=== PATIENT | male | born 1990 | race African-American/Black ===

== ENCOUNTER 2017-01-27 22:51 | Observation (INO) ==
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
[2017-01-27 23:48] LABS: Basophils # 0.1 K/mcL (0.0-0.2); Basophils % 0.4 %; Eosinophils # 0.3 K/mcL (0.0-0.6); Eosinophils % 2.2 %; Hemoglobin 15.7 g/dL (12.9-16.9); Immature Granulocytes % 0.6 % (0-4); Lymphocytes # 3.2 K/mcL (0.6-4.6); Lymphocytes % 25.6 %; Mean Corpuscular HGB Conc 34.9 g/dL (31.6-35.5); Mean Corpuscular Hemoglobin 25.7 pg (28.0-33.3); Mean Corpuscular Volume 73.8 fL (83.0-100.0); Mean Platelet Volume 8.4 fL (9.4-12.4); Monocytes % 7.6 %; Neutrophils # 7.9 K/mcL (1.6-8.9); Platelet Count 342 K/mcL (140-400); Red Cell Distribution Width 12.7 % (11.5-14.5); Segmented Neutrophils % 63.6 %
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
[2017-01-28 00:05] LABS: BUN/Creatinine Ratio 8 (6-26); Blood Urea Nitrogen 12 mg/dL (8-26); Calcium 9.2 mg/dL (8.6-10.8); Carbon Dioxide 22 mEq/L (19-29); Chloride 103 mEq/L (98-109); Glucose 332 mg/dL (70-99); Osmolality,Calculated 293 (280-300); Potassium 4.3 mEq/L (3.5-4.5); Sodium 135 mEq/L (136-145); eGFR For African Americans > 60 (> 60); eGFR For Non-African Americans 53 (> 60)
[2017-01-28 00:15] LABS: Bilirubin,Urine Negative (Negative); Blood,Urine Negative (Negative); Clarity,Urine Clear (Clear); Color,Urine Yellow (Yellow); Glucose,Urine (UA) >=1000 mg/dL (Normal); Ketones,Urine Negative (Negative); Leukocyte Esterase,Urine Negative (Negative); Nitrite,Urine Negative (Negative); PH,Urine 7.5 pH Units (5.0-8.0); Protein,Urine Negative (Neg-Trace); Urobilinogen,Urine Normal (Normal)
[2017-01-28 00:22] LABS: Amphetamine Screen,Urine Negative ng/mL (Cutoff=1000); Barbiturate Screen,Urine Negative ng/mL (Cutoff=200); Benzodiazepines Screen,Urine Negative ng/mL (Cutoff=200); Cannabinoid Screen,Urine Positive ng/mL (Cutoff = 50); Cocaine Screen,Urine Positive ng/mL (Cutoff= 300); Opiate Screen,Urine Negative ng/mL (Cutoff=300); Phencyclidine Screen,Urine Negative ng/mL (Cutoff=25)
[2017-01-28 00:39] LABS: Acetaminophen < 1.0 mcg/mL (10-30); Ethanol < 10 mg/dL (0-10); Salicylate < 5.0 mg/dL (15-30)
[2017-01-28] MEDS ORDERED: MOM Conc 10 ML UD.LIQ PO PRN (02:42)
[2017-01-28] MEDS ORDERED: *HR* LORazepam 2 MG/ML VIAL IM PRN (02:42)
[2017-01-28] MEDS ORDERED: *HR* LORazepam 1 MG TABLET PO PRN (02:42)
[2017-01-28] MEDS ORDERED: Mag Hydrox/Al Hydrox/Simeth 30 ML UDC PO PRN (02:42)
[2017-01-28] MEDS ORDERED: hydrOXYzine pamoate 25 MG CAPSULE PO PRN (02:42)
[2017-01-28] MEDS ORDERED: Haloperidol Lactate 5 MG/ML VIAL IM PRN (02:42)
[2017-01-28] MEDS ORDERED: Acetaminophen 325 MG TABLET PO PRN (02:42)
[2017-01-28] MEDS ORDERED: traZODone 50 MG TABLET PO PRN (02:42)
--- NOTE | 2017-01-28 10:34 | Psychiatry History & Physical ---
Date of Encounter: 01/28/17 History of Present Illness Medicare Admission Attestation: For traditional Medicare patients the provided hospital inpatient services are reasonable and necessary and in the case of services not specified as inpatient -only under 42 CFR 419.22 (n), that they are appropriately provided as inpatient services in accordance 42 CFR 412.3. For Critical [facility] the patient may reasonably be expected to be discharged or transferred to a hospital within 96 hours after admission to the Critical [facility] Hospital. History of Present Illness: Mr. Odom is a 26 year old male Past Med Surg Social Fam HX - Past Medical History Medical history: diabetes, hypertension - Past Surgical History Surgical History: non-contributory - Social History Smoking Status: Never smoker Smokeless Tobacco Status: No Alcohol use: occasionally Drug use: marijuana - Family History Mother Living Status: Hx Family Cardiac Disorders: Yes (CHF) Medications & Allergies Allergies No Known Allergies Allergy (Verified 01/27/17 22:53) Mental Status Exam Intelligence estimate: Average Results - Vital Signs Vital signs: Temp Pulse Resp BP Pulse Ox 97.3 F L 85 18 163/89 97 01/28/17 09:00 01/28/17 09:00 01/28/17 09:00 01/28/17 09:00 01/28/17 01:22 - Labs Labs: Laboratory Last Values WBC 12.5 K/mcL (4.3-11.1) H 01/27/17 23:40 RBC 6.10 M/mcL (4.19-5.50) H 01/27/17 23:40 Hgb 15.7 g/dL (12.9-16.9) 01/27/17 23:40 Hct 45.0 % (37.5-50.1) 01/27/17 23:40 MCV 73.8 fL (83.0-100.0) L 01/27/17 23:40 MCH 25.7 pg (28.0-33.3) L 01/27/17 23:40 MCHC 34.9 g/dL (31.6-35.5) 01/27/17 23:40 RDW 12.7 % (11.5-14.5) 01/27/17 23:40 Plt Count 342 K/mcL (140-400) 01/27/17 23:40 MPV 8.4 fL (9.4-12.4) L 01/27/17 23:40 Immature Gran % 0.6 % (0-4) 01/27/17 23:40 Seg Neutrophils % 63.6 % 01/27/17 23:40 Lymphocytes % 25.6 % 01/27/17 23:40 Monocytes % 7.6 % 01/27/17 23:40 Eosinophils % 2.2 % 01/27/17 23:40 Basophils % 0.4 % 01/27/17 23:40 Neutrophils # 7.9 K/mcL (1.6-8.9) 01/27/17 23:40 Lymphocytes # 3.2 K/mcL (0.6-4.6) 01/27/17 23:40 Monocytes # 1.0 K/mcL (0.0-1.3) 01/27/17 23:40 Eosinophils # 0.3 K/mcL (0.0-0.6) 01/27/17 23:40 Basophils # 0.1 K/mcL (0.0-0.2) 01/27/17 23:40 Sodium 135 mEq/L (136-145) L 01/27/17 23:40 Potassium 4.3 mEq/L (3.5-4.5) 01/27/17 23:40 Chloride 103 mEq/L (98-109) 01/27/17 23:40 Carbon Dioxide 22 mEq/L (19-29) 01/27/17 23:40 BUN 12 mg/dL (8-26) 01/27/17 23:40 Creatinine 1.57 mg/dL (0.72-1.25) H 01/27/17 23:40 Est GFR ( Amer) > 60 (> 60) 01/27/17 23:40 Est GFR (Non-Af Amer) 53 (> 60) L 01/27/17 23:40 BUN/Creatinine Ratio 8 (6-26) 01/27/17 23:40 Glucose 332 mg/dL (70-99) H 01/27/17 23:40 POC Glucose 250 (58-89) H 01/28/17 03:35 Calculated Osmolality 293 (280-300) 01/27/17 23:40 Calcium 9.2 mg/dL (8.6-10.8) 01/27/17 23:40 Urine Color Yellow (Yellow) 01/28/17 00:10 Urine Clarity Clear (Clear) 01/28/17 00:10 Urine pH 7.5 pH Units (5.0-8.0) 01/28/17 00:10 Ur Specific [place] 1.020 (1.010-1.025) 01/28/17 00:10 Urine Protein Negative mg/dL (Neg-Trace) 01/28/17 00:10 Urine Glucose (UA) >=1000 mg/dL (Normal) H 01/28/17 00:10 Urine Ketones Negative mg/dL (Negative) 01/28/17 00:10 Urine Blood Negative (Negative) 01/28/17 00:10 Urine Nitrite Negative (Negative) 01/28/17 00:10 Urine Bilirubin Negative (Negative) 01/28/17 00:10 Urine Urobilinogen Normal mg/dL (Normal) 01/28/17 00:10 Ur Leukocyte Esterase Negative (Negative) 01/28/17 00:10 Salicylates < 5.0 mg/dL (15-30) L 01/27/17 23:40 Urine Opiates Screen Negative ng/mL (Arhbgc=057) 01/28/17 00:10 Acetaminophen < 1.0 mcg/mL (10-30) L 01/27/17 23:40 Ur Barbiturates Screen Negative ng/mL (Zrbwdd=489) 01/28/17 00:10 Ur Phencyclidine Scrn Negative ng/mL (Cutoff=25) 01/28/17 00:10 Ur Amphetamines Screen Negative ng/mL (Erpvnm=2971) 01/28/17 00:10 U Benzodiazepines Scrn Negative ng/mL (Vvklum=849) 01/28/17 00:10 Urine Cocaine Screen Positive ng/mL (Cutoff= 300) H 01/28/17 00:10 U Marijuana (THC) Screen Positive ng/mL (Cutoff = 50) H 01/28/17 00:10 Ethyl Alcohol < 10 mg/dL (0-10) 01/27/17 23:40
--- NOTE | 2017-01-28 11:08 | Discharge Summary ---
Date of Encounter: 01/28/17 Time of Encounter: 10:59 History of Present Illness Chief complaint: Suicidal gesture Admitted From: Emergency Dept History of Present Illness: Mr. Odom is a 26 year old male brought to the emergency room for evaluation of suicidal gesture. Patient had an argument with his family and he was angry and he took a picture of himself holding a gun to his head and send it to the family. Family became concerned about his thoughts of suicide and notified authorities and police took him to the hospital for evaluation. In the emergency department patient's deny any suicidal intention or ideation and stated that he wanted them to feel bad or guilty for not helping him. Patient has been unemployed for the past 2 years and missed a job interview and his family was upset with him as a result. Patient stated that he lost his mother 2 years ago and his aunt and uncle have been helping him and supporting however they were upset with him when he missed a job interview. Patient did work in the past different jobs including cook,and some manufacturing and construction. His tox screen was positive for cocaine and THC. Patient denied any previous psychiatric treatment or suicide attempts. He had a high school education and planning to go to college. Past Med Surg Social Fam HX - Past Medical History Medical history: diabetes, hypertension - Past Psychiatric History Psychiatric history: Reports: no psych history Family psychiatric history: Unknown Family History of Suicide: Unknown - Past Surgical History Surgical History: non-contributory - Social History Smoking Status: Never smoker Smokeless Tobacco Status: No Alcohol use: occasionally Drug use: marijuana - Family History Mother Living Status: Hx Family Cardiac Disorders: Yes (CHF) Medications - Discharge Medications No Known Home Drugs 01/28/17 [History] Allergies No Known Allergies Allergy (Verified 01/27/17 22:53) Review of Systems Psychiatric: Denies: suicidal ideation, homicidal ideation Mental Status Exam - Mental Status Exam Patient orientation: Yes Person, Yes Time, Yes Place Level of alertness: Alert Patient appearance: Appropriate, Unkempt, Disheveled, Obese Behavior: calm, cooperative Psychomotor activity: Normal Eye contact: Maintains Eye Contact Mood description: Euthymic/stable Affect description: congruent with mood, euthymic Speech pattern: Normal rate, Normal rhythm, Normal tone Speech Volume: Normal Thought process: Linear, Goal Oriented Thought Content: No Suicidal ideation, No Homicidal ideation, No Overt delusions Perceptual Disturbances: No Auditory hallucinations, No Visual hallucinations Judgment: Limited Insight: Partial Results - Vital Signs Vital signs: Temp Pulse Resp BP Pulse Ox 97.3 F L 85 18 163/89 97 01/28/17 09:00 01/28/17 09:00 01/28/17 09:00 01/28/17 09:00 01/28/17 01:22 - Labs Labs: Laboratory Last Values WBC 12.5 K/mcL (4.3-11.1) H 01/27/17 23:40 RBC 6.10 M/mcL (4.19-5.50) H 01/27/17 23:40 Hgb 15.7 g/dL (12.9-16.9) 01/27/17 23:40 Hct 45.0 % (37.5-50.1) 01/27/17 23:40 MCV 73.8 fL (83.0-100.0) L 01/27/17 23:40 MCH 25.7 pg (28.0-33.3) L 01/27/17 23:40 MCHC 34.9 g/dL (31.6-35.5) 01/27/17 23:40 RDW 12.7 % (11.5-14.5) 01/27/17 23:40 Plt Count 342 K/mcL (140-400) 01/27/17 23:40 MPV 8.4 fL (9.4-12.4) L 01/27/17 23:40 Immature Gran % 0.6 % (0-4) 01/27/17 23:40 Seg Neutrophils % 63.6 % 01/27/17 23:40 Lymphocytes % 25.6 % 01/27/17 23:40 Monocytes % 7.6 % 01/27/17 23:40 Eosinophils % 2.2 % 01/27/17 23:40 Basophils % 0.4 % 01/27/17 23:40 Neutrophils # 7.9 K/mcL (1.6-8.9) 01/27/17 23:40 Lymphocytes # 3.2 K/mcL (0.6-4.6) 01/27/17 23:40 Monocytes # 1.0 K/mcL (0.0-1.3) 01/27/17 23:40 Eosinophils # 0.3 K/mcL (0.0-0.6) 01/27/17 23:40 Basophils # 0.1 K/mcL (0.0-0.2) 01/27/17 23:40 Sodium 135 mEq/L (136-145) L 01/27/17 23:40 Potassium 4.3 mEq/L (3.5-4.5) 01/27/17 23:40 Chloride 103 mEq/L (98-109) 01/27/17 23:40 Carbon Dioxide 22 mEq/L (19-29) 01/27/17 23:40 BUN 12 mg/dL (8-26) 01/27/17 23:40 Creatinine 1.57 mg/dL (0.72-1.25) H 01/27/17 23:40 Est GFR ( Amer) > 60 (> 60) 01/27/17 23:40 Est GFR (Non-Af Amer) 53 (> 60) L 01/27/17 23:40 BUN/Creatinine Ratio 8 (6-26) 01/27/17 23:40 Glucose 332 mg/dL (70-99) H 01/27/17 23:40 POC Glucose 250 (58-89) H 01/28/17 03:35 Calculated Osmolality 293 (280-300) 01/27/17 23:40 Calcium 9.2 mg/dL (8.6-10.8) 01/27/17 23:40 Urine Color Yellow (Yellow) 01/28/17 00:10 Urine Clarity Clear (Clear) 01/28/17 00:10 Urine pH 7.5 pH Units (5.0-8.0) 01/28/17 00:10 Ur Specific [place] 1.020 (1.010-1.025) 01/28/17 00:10 Urine Protein Negative mg/dL (Neg-Trace) 01/28/17 00:10 Urine Glucose (UA) >=1000 mg/dL (Normal) H 01/28/17 00:10 Urine Ketones Negative mg/dL (Negative) 01/28/17 00:10 Urine Blood Negative (Negative) 01/28/17 00:10 Urine Nitrite Negative (Negative) 01/28/17 00:10 Urine Bilirubin Negative (Negative) 01/28/17 00:10 Urine Urobilinogen Normal mg/dL (Normal) 01/28/17 00:10 Ur Leukocyte Esterase Negative (Negative) 01/28/17 00:10 Salicylates < 5.0 mg/dL (15-30) L 01/27/17 23:40 Urine Opiates Screen Negative ng/mL (Mdlaql=985) 01/28/17 00:10 Acetaminophen < 1.0 mcg/mL (10-30) L 01/27/17 23:40 Ur Barbiturates Screen Negative ng/mL (Mbmvlj=261) 01/28/17 00:10 Ur Phencyclidine Scrn Negative ng/mL (Cutoff=25) 01/28/17 00:10 Ur Amphetamines Screen Negative ng/mL (Rkcirf=9903) 01/28/17 00:10 U Benzodiazepines Scrn Negative ng/mL (Bigwnv=565) 01/28/17 00:10 Urine Cocaine Screen Positive ng/mL (Cutoff= 300) H 01/28/17 00:10 U Marijuana (THC) Screen Positive ng/mL (Cutoff = 50) H 01/28/17 00:10 Ethyl Alcohol < 10 mg/dL (0-10) 01/27/17 23:40 Diagnosis - Discharge Diagnosis (1) Suicidal ideation Status: Acute (2) Cocaine abuse Status: Acute (3) Tetrahydrocannabinol (THC) use disorder, severe, dependence Status: Acute Assessment and Plan - Patient/Caregiver Discharge Instructions Activity: resume usual activities as tolerated Diet: regular diet - Follow up Plan Follow up with: BERNADETTE,PCP [Primary Care Provider] - Functional capacity at discharge: independent ambulation Overall status at discharge: Stable Disposition: Home, Self-Care Provider Date of admission: 01/28/17 01:56 Primary care physician: KAMRYN FLEMING Discharging clinician: Celso Hernandezahim Hospital Course Hospital course: Mr. Odom is a 26 year old male admitted for evaluation of suicidal gesture. See history of present illness Patient was evaluated, he denied any suicidal ideation or intent. She did not endorse any symptoms of depression and anxiety and he declined to be on any medication and was advised on substance abuse and dependence and the need to have outpatient counseling related to substance abuse and he was agreeable. Discharge patient was medically stable and referred for outpatient resources to address substance abuse. Patient did not meet any criteria for inpatient psychiatric hospitalization. - Time Spent with Patient Total time spent providing and/or coordinating discharge services: Greater than 30 minutes Procedures - Procedures Procedures: Medication Management, Crisis Stabilization, Supportive Therapy, Group Therapy, Psychoeducational Therapy Quality - Multiple Antipsychotics Patient discharged on 2 or more antipsychotic medications: No
[2017-01-31 10:30] VITALS: BP 163/89
== END 2017-01-28 15:40 | disposition home or self-care (01) ==
LOC: 1ANU 22:51 → EMEROO 22:51 → 1ANU 01-28 01:50
PROVIDERS: ADMIT Psychiatry & Neurology Psychiatry; ATTEND Psychiatry & Neurology Psychiatry

== ENCOUNTER 2022-04-24 13:42 | Inpatient (IN) ==
[2022-04-24] MEDS ORDERED: 0.9 % Sodium Chloride 1,000 ML IVC ONE (15:58)
[2022-04-24] MEDS ORDERED: Ondansetron 4 MG/2 ML VIAL IVP ONE (15:58)
[2022-04-24] MEDS ORDERED: Ketorolac 30 MG/ML VIAL IVP ONE (15:59)
[2022-04-24 16:25] LABS: Basophils % 0.2 %; Eosinophils % 0.1 %; Immature Granulocytes % 0.5 % (0-4); Lymphocytes # 1.5 K/mcL (0.6-4.6); Lymphocytes % 8.9 %; Mean Corpuscular HGB Conc 34.7 g/dL (31.6-35.5); Mean Corpuscular Hemoglobin 25.8 pg (28.0-33.3); Mean Corpuscular Volume 74.4 fL (83.0-100.0); Mean Platelet Volume 8.5 fL (9.4-12.4); Monocytes # 1.2 K/mcL (0.0-1.3); Monocytes % 7.1 %; Neutrophils # 13.9 K/mcL (1.6-8.9); Platelet Count 357 K/mcL (140-400); Red Blood Count 6.59 M/mcL (4.19-5.50); Red Cell Distribution Width 12.6 % (11.5-14.5); Segmented Neutrophils % 83.2 %; White Blood Count 16.7 K/mcL (4.3-11.1)
[2022-04-24] MEDS ORDERED: *HR* Heparin 5,000 UNIT/ML VIAL IVP ONE (16:38)
[2022-04-24] MEDS ORDERED: *HR* Heparin 5,000 UNIT/ML VIAL IVP PRN ×2 (16:38)
[2022-04-24] MEDS ORDERED: Aspirin 325 MG TABLET PO ONE (16:38)
[2022-04-24] MEDS ORDERED: Heparin 25,000UNIT/250ML 1/2NS 25,000 UNIT/250 ML IV.SOLN IVC SCH (16:45)
[2022-04-24] MEDS ORDERED: Perflutren Lipid Microsphere 1.3 ML in 0.9 % Sodium Chloride 8.7 ML IVP PRN ×2 (16:46→18:43)
[2022-04-24] MEDS ORDERED: Furosemide 40 MG/4 ML VIAL IVP ONE (16:50)
[2022-04-24 16:52] LABS: Alanine Aminotransferase 37 Units/L (7-52); Albumin 4.7 g/dL (3.5-5.7); Albumin/Globulin Ratio 1.4 (1.1-2.2); Alkaline Phosphatase 103 Units/L (34-104); Aspartate Amino Transferase 73 Units/L (13-39); BUN/Creatinine Ratio 15 (6-26); Bilirubin,Total 1.4 mg/dL (0.3-1.0); Blood Urea Nitrogen 13 mg/dL (6-20); Calcium 9.7 mg/dL (8.6-10.3); Carbon Dioxide 22 mEq/L (23-29); Chloride 95 mEq/L (98-107); Globulin 3.4 g/dL (2.4-3.5); Glucose 295 mg/dL (70-105); Lipase 36 Units/L (11-82); Osmolality,Calculated 287 (280-300); Potassium 3.7 mEq/L (3.5-5.1); Sodium 133 mEq/L (136-145); Total Protein 8.1 g/dL (6.4-8.9); Troponin I 9.64 ng/mL (< 0.04); eGFR For African Americans > 60 (> 60); eGFR For Non-African Americans > 60 (> 60)
[2022-04-24] MEDS ORDERED: *HR* Ticagrelor 90 MG TABLET PO ONE (16:53)
[2022-04-24 17:01] LABS: Heparin anti-factor XA UFH < 0.04 IU/mL (0.30-0.70); INR 1.1; Prothrombin Time 12.8 Seconds (9.4-12.1)
[2022-04-24] MEDS ORDERED: *HR* FentaNYL (PF) 100 MCG/2 ML VIAL ONE (17:23)
[2022-04-24] MEDS ORDERED: *HR* Midazolam HCl 2 MG/2 ML VIAL ONE (17:23)
[2022-04-24] MEDS ORDERED: *HR* Heparin 10,000 UNIT/10 ML VIAL ONE ×2 (17:24→18:03)
[2022-04-24] MEDS ORDERED: 0.9 % Sodium Chloride 2,000 ML ONE (17:24)
[2022-04-24] MEDS ORDERED: Nitroglycerin 1,000 MCG/5 ML VIAL IV ONE (17:24)
[2022-04-24] MEDS ORDERED: Heparin 1,000 UNITS/500 mL 1,000 ML ONE (17:24)
[2022-04-24] MEDS ORDERED: Iopamidol - 370 200 ML INFUS..BTL ONE ×2 (17:24→18:05)
[2022-04-24] MEDS ORDERED: Naloxone 0.4 MG/ML INJ IVP PRN (18:43)
[2022-04-24] MEDS ORDERED: Dextrose Gel 15 GM/37.5 ML TUBE PO PRN ×2 (19:27)
[2022-04-24] MEDS ORDERED: *HR* Dextrose 50 % in Water (Syg) 50 ML SYRINGE IVP PRN (19:27)
[2022-04-24] MEDS ORDERED: D5% in Water 1,000 ML IVC PRN (19:27)
[2022-04-24] MEDS ORDERED: Insulin LISPRO 300 UNITS/3 ML VIAL SUBQ SCH (21:00)
[2022-04-24 21:06] LABS: Bilirubin,Urine Negative (Negative); Blood,Urine Small (Negative); Clarity,Urine Clear (Clear); Color,Urine Light-Yellow (Yellow); Glucose,Urine (UA) 200 mg/dL (Normal); Hyaline Casts,Urine Few per lpf (None Seen); Ketones,Urine 40 mg/dL (Negative); Leukocyte Esterase,Urine Negative (Negative); Nitrite,Urine Negative (Negative); PH,Urine 6.5 pH Units (5.0-8.0); Protein,Urine 30 mg/dL (Neg-Trace); Specific Gravity,Urine > 1.030 (1.010-1.025); Squamous Epithelial Cell,Urine Few per hpf (None-Few); Urobilinogen,Urine Normal (Normal); WBC,Urine 0-3 per hpf (0-3)
[2022-04-24 21:17] LABS: Amphetamine Screen,Urine Negative ng/mL (Cutoff=1000); Barbiturate Screen,Urine Negative ng/mL (Cutoff=200); Benzodiazepines Screen,Urine Positive ng/mL (Cutoff=200); Cannabinoid Screen,Urine Positive ng/mL (Cutoff = 50); Cocaine Screen,Urine Positive ng/mL (Cutoff= 300); Opiate Screen,Urine Negative ng/mL (Cutoff=300); Phencyclidine Screen,Urine Negative ng/mL (Cutoff=25)
[2022-04-24] MEDS: *HR* Ticagrelor 90 MG TABLET PO SCH (23:15)
[2022-04-25] MEDS ORDERED: Pantoprazole 40 MG VIAL IVP ONE (03:03)
[2022-04-25] MEDS ORDERED: Ondansetron 4 MG/2 ML VIAL IVP ONE ×2 (03:08→06:50)
[2022-04-25] MEDS ORDERED: Ondansetron 4 MG/2 ML VIAL ONE (03:14)
[2022-04-25] MEDS ORDERED: Aspirin 325 MG TABLET PO ONE (03:21)
[2022-04-25] MEDS ORDERED: *HR* Promethazine 25 MG/ML VIAL IM ONE (03:31)
[2022-04-25] MEDS: *HR* Heparin 5,000 UNIT/ML VIAL SQ SCH ×2 (05:08→16:07)
[2022-04-25] MEDS ORDERED: Ondansetron ODT 4 MG TAB.RAPDIS SL PRN (06:28)
[2022-04-25] MEDS: Prochlorperazine 10 MG/2 ML VIAL IVP PRN (06:44)
[2022-04-25] MEDS ORDERED: Furosemide 40 MG/4 ML VIAL IVP ONE (06:55)
[2022-04-25] MEDS ORDERED: Furosemide 40 MG/4 ML VIAL ONE (06:56)
[2022-04-25] MEDS ORDERED: *HR* Labetalol 20 MG/4 ML SYRINGE IVP PRN (07:25)
[2022-04-25 07:29] LABS: Basophils % 0.2 %; Eosinophils % 0.1 %; Hematocrit 47.8 % (37.5-50.1); Hemoglobin 16.3 g/dL (12.9-16.9); Immature Granulocytes % 0.4 % (0-4); Lymphocytes # 1.2 K/mcL (0.6-4.6); Lymphocytes % 7.3 %; Mean Corpuscular HGB Conc 34.1 g/dL (31.6-35.5); Mean Corpuscular Volume 76.1 fL (83.0-100.0); Mean Platelet Volume 8.7 fL (9.4-12.4); Platelet Count 316 K/mcL (140-400); Red Blood Count 6.28 M/mcL (4.19-5.50); Red Cell Distribution Width 12.5 % (11.5-14.5); White Blood Count 16.3 K/mcL (4.3-11.1)
[2022-04-25] MEDS ORDERED: Insulin LISPRO 300 UNITS/3 ML VIAL SUBQ SCH (07:30)
[2022-04-25] MEDS: *HR* Ticagrelor 90 MG TABLET PO SCH (07:33)
[2022-04-25 07:44] LABS: BUN/Creatinine Ratio 17 (6-26); Blood Urea Nitrogen 14 mg/dL (6-20); Carbon Dioxide 19 mEq/L (23-29); Chloride 97 mEq/L (98-107); Chol/HDL Ratio 5.9 (0-4.9); Cholesterol 247 mg/dL (< 200); Glucose 257 mg/dL (70-105); HDL Cholesterol 42 mg/dL (40-59); LDL Cholesterol,Calculated 168 mg/dL (< 100); Osmolality,Calculated 287 (280-300); Potassium 3.5 mEq/L (3.5-5.1); Sodium 134 mEq/L (136-145); Triglycerides 183 mg/dL (< 150); eGFR For African Americans > 60 (> 60); eGFR For Non-African Americans > 60 (> 60)
[2022-04-25] MEDS: Insulin DETEMIR 100 UNIT/ML X5UNITS SUBQ SCH ×2 (07:57→21:10)
[2022-04-25 08:10] LABS: Troponin I 5.89 ng/mL (< 0.04)
[2022-04-25] MEDS: Insulin LISPRO 300 UNITS/3 ML VIAL SUBQ SCH ×3 (11:28→21:11)
[2022-04-25] MEDS: Furosemide 80 MG in 0.9 % Sodium Chloride 50 ML IV SCH (21:11)
[2022-04-26 02:56] LABS: Hematocrit 48.1 % (37.5-50.1); Hemoglobin 16.4 g/dL (12.9-16.9); Mean Corpuscular HGB Conc 34.1 g/dL (31.6-35.5); Mean Corpuscular Hemoglobin 25.7 pg (28.0-33.3); Mean Corpuscular Volume 75.4 fL (83.0-100.0); Mean Platelet Volume 8.4 fL (9.4-12.4); Platelet Count 343 K/mcL (140-400); Red Blood Count 6.38 M/mcL (4.19-5.50); Red Cell Distribution Width 12.6 % (11.5-14.5)
[2022-04-26] MEDS: Prochlorperazine 10 MG/2 ML VIAL IVP PRN (03:07)
[2022-04-26 03:16] LABS: BUN/Creatinine Ratio 17 (6-26); Blood Urea Nitrogen 15 mg/dL (6-20); Calcium 9.4 mg/dL (8.6-10.3); Carbon Dioxide 27 mEq/L (23-29); Chloride 99 mEq/L (98-107); Glucose 142 mg/dL (70-105); Osmolality,Calculated 287 (280-300); Potassium 3.5 mEq/L (3.5-5.1); Sodium 137 mEq/L (136-145); eGFR For African Americans > 60 (> 60); eGFR For Non-African Americans > 60 (> 60)
[2022-04-26] MEDS: *HR* Heparin 5,000 UNIT/ML VIAL SQ SCH ×2 (05:23→16:18)
[2022-04-26] MEDS: Insulin LISPRO 300 UNITS/3 ML VIAL SUBQ SCH ×4 (07:27→20:48)
[2022-04-26 08:18] LABS: Estimated Average Glucose 220 mg/dl; Hemoglobin A1C 9.3 %
[2022-04-26] MEDS: Aspirin 81 MG TAB.CHEW PO SCH (08:34)
[2022-04-26] MEDS: Insulin DETEMIR 100 UNIT/ML X5UNITS SUBQ SCH ×2 (08:34→20:47)
[2022-04-26] MEDS: Pantoprazole 40 MG VIAL IVP SCH (08:36)
[2022-04-26] MEDS: Furosemide 80 MG in 0.9 % Sodium Chloride 50 ML IV SCH (08:49)
[2022-04-26] MEDS: carvediloL 6.25 MG TABLET PO SCH (16:17)
[2022-04-26] MEDS: Chlorhexidine Rinse 15 ML MOUTHWASH MM SCH (20:47)
[2022-04-27] MEDS: Chlorhexidine Rinse 15 ML MOUTHWASH MM SCH ×2 (05:33→20:02)
[2022-04-27] MEDS: *HR* Heparin 5,000 UNIT/ML VIAL SQ SCH ×2 (05:34→23:11)
[2022-04-27 05:50] LABS: Basophils # 0.1 K/mcL (0.0-0.2); Basophils % 0.3 %; Eosinophils # 0.2 K/mcL (0.0-0.6); Eosinophils % 1.4 %; Hematocrit 47.4 % (37.5-50.1); Hemoglobin 16.1 g/dL (12.9-16.9); Immature Granulocytes % 0.6 % (0-4); Lymphocytes # 3.7 K/mcL (0.6-4.6); Lymphocytes % 22.8 %; Mean Corpuscular Hemoglobin 25.9 pg (28.0-33.3); Mean Corpuscular Volume 76.2 fL (83.0-100.0); Mean Platelet Volume 8.4 fL (9.4-12.4); Monocytes # 1.4 K/mcL (0.0-1.3); Monocytes % 8.9 %; Neutrophils # 10.6 K/mcL (1.6-8.9); Platelet Count 329 K/mcL (140-400); Red Blood Count 6.22 M/mcL (4.19-5.50); Red Cell Distribution Width 12.6 % (11.5-14.5)
[2022-04-27] MEDS ORDERED: Aspirin 81 MG TAB.CHEW PO ONE ×2 (06:00→14:00)
[2022-04-27] MEDS ORDERED: CeFAZolin Syr 2,000MG/20 ML 2,000 MG/20 ML SYRINGE IVPB ONE (06:00)
[2022-04-27 06:04] LABS: Activated Partial Thrombo Time 37.4 Seconds (26.0-36.0)
[2022-04-27] MEDS ORDERED: DOBUTamine 1,000 MG/250 ML BAG ONE (06:15)
[2022-04-27] MEDS ORDERED: Papaverine 60 MG/2 ML VIAL IVP ONE (06:16)
[2022-04-27 06:17] LABS: BUN/Creatinine Ratio 23 (6-26); Blood Urea Nitrogen 19 mg/dL (6-20); Calcium 8.9 mg/dL (8.6-10.3); Carbon Dioxide 25 mEq/L (23-29); Chloride 102 mEq/L (98-107); Chol/HDL Ratio 5.9 (0-4.9); Cholesterol 225 mg/dL (< 200); Glucose 122 mg/dL (70-105); HDL Cholesterol 38 mg/dL (40-59); LDL Cholesterol,Calculated 149 mg/dL (< 100); Osmolality,Calculated 288 (280-300); Potassium 3.4 mEq/L (3.5-5.1); Sodium 137 mEq/L (136-145); Triglycerides 188 mg/dL (< 150); eGFR For African Americans > 60 (> 60); eGFR For Non-African Americans > 60 (> 60)
[2022-04-27] MEDS ORDERED: *HR* FentaNYL (PF) 250 MCG/5 ML VIAL ONE ×2 (06:18→09:17)
[2022-04-27] MEDS ORDERED: *HR* Rocuronium Bromide 50 MG/5 ML VIAL ONE ×2 (06:19→08:47)
[2022-04-27] MEDS ORDERED: *HR* Midazolam HCl 5 MG/5 ML VIAL IVP ONE (06:19)
[2022-04-27] MEDS ORDERED: *HR* Propofol 200 MG/20 ML VIAL IVP ONE (06:19)
[2022-04-27] MEDS ORDERED: *HR* Magnesium Sulfate 1 GM/2 ML VIAL ONE (06:20)
[2022-04-27] MEDS ORDERED: Lidocaine 2% Syringe 100 MG/5 ML ONE (06:20)
[2022-04-27] MEDS ORDERED: Famotidine 20 MG/2 ML VIAL ONE (06:20)
[2022-04-27 06:23] LABS: INR 1.2; Prothrombin Time 13.6 Seconds (9.4-12.1)
[2022-04-27] MEDS ORDERED: Buckersberg's Blood Cardioplegia PF ONE (07:00)
[2022-04-27] MEDS ORDERED: del Nido Cardioplegia Solution PF ONE ×2 (07:00)
[2022-04-27] MEDS ORDERED: Norepinephrine 4 MG in 0.9 % Sodium Chloride 250 ML IVC PRN (07:00)
[2022-04-27] MEDS ORDERED: Heparin 15,000 UNIT in 0.9 % Sodium Chloride 500 ML IV ONE (07:00)
[2022-04-27] MEDS ORDERED: Acetaminophen IV 1,000 MG/100 ML BAG IVPB ONE (07:01)
[2022-04-27] MEDS: Insulin LISPRO 300 UNITS/3 ML VIAL SUBQ SCH ×2 (07:22→09:54)
[2022-04-27] MEDS: Aspirin 81 MG TAB.CHEW PO SCH (07:24)
[2022-04-27] MEDS: Pantoprazole 40 MG VIAL IVP SCH ×2 (07:24→15:52)
[2022-04-27] MEDS: Insulin DETEMIR 100 UNIT/ML X5UNITS SUBQ SCH (07:24)
[2022-04-27] MEDS: carvediloL 6.25 MG TABLET PO SCH ×2 (07:24→15:06)
[2022-04-27] MEDS ORDERED: Albumin Human 5% 12.5 GM/250 ML IV.SOLN ONE (08:11)
[2022-04-27 09:25] LABS: ABG Base Excess -2 mEq/L (-2 to 3); ABG Chloride 104 mEq/L (98-107); ABG Glucose 140 mg/dL (60-95); ABG HCO3 26 mEq/L (21-27); ABG Ionized Calcium 1.17 mmol/L (1.15-1.35); ABG Oxygen Saturation 100 % (95-98); ABG PCO2 56 mmHg (35-45); ABG PH 7.28 pH Units (7.32-7.45); ABG PO2 440 mmHg (85-104); ABG TCO2 28 mEq/L (20-26)
[2022-04-27] MEDS ORDERED: *HR* FentaNYL (PF) 100 MCG/2 ML VIAL IVP PRN (10:00)
[2022-04-27] MEDS ORDERED: Ondansetron 4 MG/2 ML VIAL IVP PRN (10:00)
[2022-04-27] MEDS ORDERED: *HR* Dextrose 50 % in Water (Syg) 50 ML SYRINGE IVP PRN (10:00)
[2022-04-27] MEDS ORDERED: Insulin Regular, Human 100 UNIT/ML IV PRN (10:00)
[2022-04-27] MEDS ORDERED: Acetaminophen 325 MG TABLET PO PRN (10:00)
[2022-04-27] MEDS ORDERED: Potassium Chloride 40 MEQ/200 ML BAG IVPB PRN (10:00)
[2022-04-27] MEDS ORDERED: Calcium Gluconate 1gm/50mL 1 GM/50 ML BAG IVPB PRN (10:00)
[2022-04-27] MEDS ORDERED: Protamine Sulfate 250 MG/25 ML VIAL IVP ONE (10:30)
[2022-04-27] MEDS ORDERED: Calcium Gluconate 1,000 MG/10 ML VIAL ONE (10:30)
[2022-04-27 10:33] LABS: ABG Base Excess -2 mEq/L (-2 to 3); ABG Chloride 105 mEq/L (98-107); ABG Glucose 170 mg/dL (60-95); ABG HCO3 22 mEq/L (21-27); ABG Ionized Calcium 1.07 mmol/L (1.15-1.35); ABG Oxygen Saturation 100 % (95-98); ABG PCO2 35 mmHg (35-45); ABG PO2 455 mmHg (85-104); ABG TCO2 23 mEq/L (20-26)
[2022-04-27] MEDS ORDERED: Albumin Human 5% 50.0 GM/1,000 ML IV.SOLN ONE (10:58)
[2022-04-27] MEDS ORDERED: Albumin Human 5% 12.5 GM/250 ML IV.SOLN IVPB PRN (10:59)
[2022-04-27] MEDS ORDERED: niCARdipine 20 MG/200 ML MLS IVC ONE (11:24)
[2022-04-27 11:30] LABS: ABG Base Excess -4 mEq/L (-2 to 3); ABG HCO3 21 mEq/L (21-27); ABG Oxygen Saturation 100 % (95-98); ABG PCO2 36 mmHg (35-45); ABG PH 7.37 pH Units (7.32-7.45); ABG PO2 212 mmHg (85-104); ABG TCO2 22 mEq/L (20-26)
[2022-04-27] MEDS: niCARdipine 20 MG/200 ML MLS IVC SCH ×3 (11:33→17:03)
[2022-04-27 11:41] LABS: Basophils # 0.1 K/mcL (0.0-0.2); Basophils % 0.3 %; Eosinophils # 0.1 K/mcL (0.0-0.6); Eosinophils % 0.6 %; Hematocrit 41.8 % (37.5-50.1); Immature Granulocytes % 1.1 % (0-4); Lymphocytes # 1.7 K/mcL (0.6-4.6); Lymphocytes % 8.2 %; Mean Corpuscular Hemoglobin 25.9 pg (28.0-33.3); Mean Corpuscular Volume 76.3 fL (83.0-100.0); Mean Platelet Volume 8.8 fL (9.4-12.4); Monocytes # 0.8 K/mcL (0.0-1.3); Monocytes % 3.7 %; Neutrophils # 18.3 K/mcL (1.6-8.9); Platelet Count 272 K/mcL (140-400); Red Blood Count 5.48 M/mcL (4.19-5.50); Red Cell Distribution Width 12.6 % (11.5-14.5); Segmented Neutrophils % 86.1 %; White Blood Count 21.2 K/mcL (4.3-11.1)
[2022-04-27 11:48] LABS: Hemoglobin 14.2 g/dL (12.9-16.9); INR 1.4; Prothrombin Time 15.6 Seconds (9.4-12.1)
[2022-04-27 11:51] LABS: Activated Partial Thrombo Time 30.4 Seconds (26.0-36.0)
[2022-04-27 12:01] LABS: BUN/Creatinine Ratio 21 (6-26); Blood Urea Nitrogen 19 mg/dL (6-20); Calcium 9.2 mg/dL (8.6-10.3); Carbon Dioxide 22 mEq/L (23-29); Chloride 102 mEq/L (98-107); Glucose 231 mg/dL (70-105); Osmolality,Calculated 288 (280-300); Potassium 4.2 mEq/L (3.5-5.1); Sodium 134 mEq/L (136-145); eGFR For African Americans > 60 (> 60); eGFR For Non-African Americans > 60 (> 60)
[2022-04-27] MEDS: Norepinephrine 4 MG/254 ML IV.SOLN IVC SCH (12:09)
[2022-04-27] MEDS: DOBUTamine 1,000 MG/250 ML BAG IVC SCH (12:09)
[2022-04-27] MEDS: *HR* FentaNYL (PF) 100 MCG/2 ML VIAL IVP PRN ×4 (13:00→19:13)
[2022-04-27] MEDS: Dexmedetomidine HCl 400 MCG/100 ML MLS IVC SCH (13:05)
[2022-04-27] MEDS: Gabapentin 300 MG CAPSULE PO SCH ×2 (13:55→19:19)
[2022-04-27] MEDS ORDERED: Lidocaine/EPI 1:100k 1% 20 ML VIAL INFILT ONE (14:50)
[2022-04-27] MEDS: *HR* OxyCODONE/APAP 5/325 TABLET PO PRN ×3 (15:06→23:20)
[2022-04-27] MEDS: CeFAZolin 2 GM/120 ML BAG IVPB SCH (15:15)
[2022-04-27] MEDS ORDERED: Heparin 1,000 UNITS/500 mL IV.SOLN IR ONE (17:02)
[2022-04-27] MEDS ORDERED: *HR* Heparin 10,000 UNIT/10 ML VIAL IR ONE (17:02)
[2022-04-28] MEDS: CeFAZolin 2 GM/120 ML BAG IVPB SCH ×3 (00:11→15:37)
[2022-04-28] MEDS: *HR* FentaNYL (PF) 100 MCG/2 ML VIAL IVP PRN ×2 (00:23→06:34)
[2022-04-28] MEDS: niCARdipine 20 MG/200 ML MLS IVC SCH ×4 (03:10→10:05)
[2022-04-28] MEDS: Norepinephrine 4 MG/254 ML IV.SOLN IVC SCH (03:11)
[2022-04-28 03:22] LABS: Basophils % 0.2 %; Eosinophils % 0.2 %; Hematocrit 37.1 % (37.5-50.1); Immature Granulocytes % 0.4 % (0-4); Lymphocytes # 1.7 K/mcL (0.6-4.6); Lymphocytes % 9.9 %; Mean Corpuscular Hemoglobin 25.9 pg (28.0-33.3); Mean Corpuscular Volume 76.3 fL (83.0-100.0); Mean Platelet Volume 8.9 fL (9.4-12.4); Monocytes # 1.8 K/mcL (0.0-1.3); Neutrophils # 13.9 K/mcL (1.6-8.9); Platelet Count 265 K/mcL (140-400); Red Blood Count 4.86 M/mcL (4.19-5.50); Red Cell Distribution Width 12.4 % (11.5-14.5); Segmented Neutrophils % 79.3 %; White Blood Count 17.6 K/mcL (4.3-11.1)
[2022-04-28] MEDS: *HR* OxyCODONE/APAP 5/325 TABLET PO PRN ×3 (03:30→19:42)
[2022-04-28 03:35] LABS: INR 1.3; Prothrombin Time 14.7 Seconds (9.4-12.1)
[2022-04-28 03:38] LABS: Activated Partial Thrombo Time 31.6 Seconds (26.0-36.0)
[2022-04-28 03:41] LABS: BUN/Creatinine Ratio 18 (6-26); Blood Urea Nitrogen 13 mg/dL (6-20); Calcium 8.5 mg/dL (8.6-10.3); Carbon Dioxide 21 mEq/L (23-29); Chloride 101 mEq/L (98-107); Glucose 118 mg/dL (70-105); Osmolality,Calculated 277 (280-300); Potassium 4.3 mEq/L (3.5-5.1); Sodium 133 mEq/L (136-145); eGFR For African Americans > 60 (> 60); eGFR For Non-African Americans > 60 (> 60)
[2022-04-28 03:48] LABS: Hemoglobin 12.6 g/dL (12.9-16.9)
[2022-04-28] MEDS: *HR* Heparin 5,000 UNIT/ML VIAL SQ SCH ×3 (06:33→21:14)
[2022-04-28] MEDS: carvediloL 6.25 MG TABLET PO SCH ×2 (07:43→16:42)
[2022-04-28] MEDS: Gabapentin 300 MG CAPSULE PO SCH ×3 (07:44→19:42)
[2022-04-28] MEDS: Pantoprazole 40 MG VIAL IVP SCH (07:44)
[2022-04-28] MEDS: Chlorhexidine Rinse 15 ML MOUTHWASH MM SCH ×2 (07:44→19:43)
[2022-04-28] MEDS ORDERED: Aspirin Enteric Coated 81 MG Tablet PO SCH (09:00)
[2022-04-28] MEDS: Dexmedetomidine HCl 400 MCG/100 ML MLS IVC SCH (09:09)
[2022-04-28] MEDS: DOBUTamine 1,000 MG/250 ML BAG IVC SCH (10:05)
[2022-04-28] MEDS ORDERED: Dextrose Gel 15 GM/37.5 ML TUBE PO PRN ×4 (11:27)
[2022-04-28] MEDS ORDERED: Ondansetron ODT 4 MG TAB.RAPDIS SL PRN (11:27)
[2022-04-28] MEDS ORDERED: Naloxone 0.4 MG/ML INJ IVP PRN (11:27)
[2022-04-28] MEDS ORDERED: D5% in Water 1,000 ML IVC PRN (11:27)
[2022-04-28] MEDS ORDERED: Ondansetron 4 MG/2 ML VIAL IVP PRN (11:27)
[2022-04-28] MEDS ORDERED: Prochlorperazine 10 MG/2 ML VIAL IVP PRN (11:27)
[2022-04-28] MEDS ORDERED: *HR* Dextrose 50 % in Water (Syg) 50 ML SYRINGE IVP PRN (11:27)
[2022-04-28] MEDS: Insulin LISPRO 300 UNITS/3 ML VIAL SUBQ SCH ×3 (12:13→19:50)
[2022-04-28] MEDS: Acetaminophen 325 MG TABLET PO PRN (15:43)
[2022-04-29] MEDS: CeFAZolin 2 GM/120 ML BAG IVPB SCH ×2 (00:02→07:37)
[2022-04-29] MEDS: *HR* OxyCODONE/APAP 5/325 TABLET PO PRN ×2 (03:24→07:58)
[2022-04-29] MEDS: *HR* Heparin 5,000 UNIT/ML VIAL SQ SCH ×3 (05:46→21:00)
[2022-04-29 07:14] LABS: Basophils % 0.2 %; Eosinophils % 0.2 %; Immature Granulocytes % 0.4 % (0-4); Mean Corpuscular HGB Conc 34.1 g/dL (31.6-35.5); Mean Corpuscular Volume 76.2 fL (83.0-100.0); Mean Platelet Volume 9.1 fL (9.4-12.4); Monocytes # 1.7 K/mcL (0.0-1.3); Monocytes % 12.1 %; Neutrophils # 10.4 K/mcL (1.6-8.9); Platelet Count 246 K/mcL (140-400); Red Cell Distribution Width 12.4 % (11.5-14.5); Segmented Neutrophils % 73.1 %; White Blood Count 14.3 K/mcL (4.3-11.1)
[2022-04-29 07:15] LABS: Hemoglobin 10.9 g/dL (12.9-16.9)
[2022-04-29] MEDS ORDERED: Furosemide 40 MG/4 ML VIAL IVP ONE (07:21)
[2022-04-29 07:37] LABS: BUN/Creatinine Ratio 16 (6-26); Blood Urea Nitrogen 13 mg/dL (6-20); Calcium 8.2 mg/dL (8.6-10.3); Carbon Dioxide 26 mEq/L (23-29); Chloride 97 mEq/L (98-107); Glucose 199 mg/dL (70-105); Magnesium 2.1 mg/dL (1.6-2.6); Osmolality,Calculated 278 (280-300); Potassium 4.4 mEq/L (3.5-5.1); Sodium 131 mEq/L (136-145); eGFR For African Americans > 60 (> 60); eGFR For Non-African Americans > 60 (> 60)
[2022-04-29] MEDS: Aspirin Enteric Coated 81 MG Tablet PO SCH (07:38)
[2022-04-29] MEDS: Gabapentin 300 MG CAPSULE PO SCH ×3 (07:38→20:03)
[2022-04-29] MEDS: Chlorhexidine Rinse 15 ML MOUTHWASH MM SCH ×2 (07:38→20:02)
[2022-04-29] MEDS: carvediloL 6.25 MG TABLET PO SCH (07:39)
[2022-04-29] MEDS: Insulin LISPRO 300 UNITS/3 ML VIAL SUBQ SCH ×4 (08:00→20:03)
[2022-04-29] MEDS: Insulin DETEMIR 100 UNIT/ML X5UNITS SUBQ SCH ×2 (09:54→21:06)
[2022-04-29 12:37] LABS: Hematocrit 32.1 % (37.5-50.1); Hemoglobin 10.9 g/dL (12.9-16.9)
[2022-04-29] MEDS: Metoprolol XL (24 HR) Succ 25 MG TAB.ER.24H PO SCH ×2 (14:03→20:03)
[2022-04-30] MEDS: *HR* OxyCODONE/APAP 5/325 TABLET PO PRN (00:14)
[2022-04-30 03:18] LABS: Basophils % 0.1 %; Eosinophils # 0.1 K/mcL (0.0-0.6); Eosinophils % 0.5 %; Hematocrit 28.6 % (37.5-50.1); Hemoglobin 9.7 g/dL (12.9-16.9); Immature Granulocytes % 0.4 % (0-4); Lymphocytes # 2.4 K/mcL (0.6-4.6); Lymphocytes % 16.5 %; Mean Corpuscular HGB Conc 33.9 g/dL (31.6-35.5); Mean Corpuscular Hemoglobin 25.7 pg (28.0-33.3); Mean Corpuscular Volume 75.9 fL (83.0-100.0); Mean Platelet Volume 9.2 fL (9.4-12.4); Monocytes # 1.6 K/mcL (0.0-1.3); Monocytes % 11.3 %; Neutrophils # 10.2 K/mcL (1.6-8.9); Platelet Count 274 K/mcL (140-400); Red Blood Count 3.77 M/mcL (4.19-5.50); Red Cell Distribution Width 12.3 % (11.5-14.5); Segmented Neutrophils % 71.2 %; White Blood Count 14.3 K/mcL (4.3-11.1)
[2022-04-30 03:47] LABS: BUN/Creatinine Ratio 18 (6-26); Blood Urea Nitrogen 15 mg/dL (6-20); Calcium 8.3 mg/dL (8.6-10.3); Carbon Dioxide 26 mEq/L (23-29); Chloride 95 mEq/L (98-107); Glucose 245 mg/dL (70-105); Magnesium 2.1 mg/dL (1.6-2.6); Osmolality,Calculated 279 (280-300); Potassium 3.9 mEq/L (3.5-5.1); Sodium 130 mEq/L (136-145); eGFR For African Americans > 60 (> 60); eGFR For Non-African Americans > 60 (> 60)
[2022-04-30] MEDS: *HR* Heparin 5,000 UNIT/ML VIAL SQ SCH ×3 (05:02→21:05)
[2022-04-30] MEDS: Gabapentin 300 MG CAPSULE PO SCH ×3 (08:01→20:03)
[2022-04-30] MEDS: Metoprolol XL (24 HR) Succ 25 MG TAB.ER.24H PO SCH ×3 (08:01→19:27)
[2022-04-30] MEDS: Chlorhexidine Rinse 15 ML MOUTHWASH MM SCH ×2 (08:02→20:03)
[2022-04-30] MEDS: Aspirin Enteric Coated 81 MG Tablet PO SCH (08:02)
[2022-04-30] MEDS: Insulin LISPRO 300 UNITS/3 ML VIAL SUBQ SCH ×4 (08:03→20:01)
[2022-04-30] MEDS: Insulin DETEMIR 100 UNIT/ML X5UNITS SUBQ SCH ×2 (08:03→20:02)
[2022-04-30] MEDS ORDERED: Metoprolol XL (24 HR) Succ 25 MG TAB.ER.24H PO ONE (09:30)
[2022-05-01 03:35] LABS: Basophils % 0.3 %; Eosinophils # 0.3 K/mcL (0.0-0.6); Eosinophils % 2.1 %; Hematocrit 28.2 % (37.5-50.1); Hemoglobin 9.4 g/dL (12.9-16.9); Immature Granulocytes % 0.7 % (0-4); Lymphocytes # 2.1 K/mcL (0.6-4.6); Lymphocytes % 15.8 %; Mean Corpuscular HGB Conc 33.3 g/dL (31.6-35.5); Mean Corpuscular Hemoglobin 25.7 pg (28.0-33.3); Monocytes # 1.6 K/mcL (0.0-1.3); Monocytes % 12.1 %; Neutrophils # 9.2 K/mcL (1.6-8.9); Platelet Count 359 K/mcL (140-400); Red Blood Count 3.66 M/mcL (4.19-5.50); Red Cell Distribution Width 12.3 % (11.5-14.5); White Blood Count 13.4 K/mcL (4.3-11.1)
[2022-05-01 03:38] LABS: BUN/Creatinine Ratio 16 (6-26); Blood Urea Nitrogen 13 mg/dL (6-20); Calcium 8.5 mg/dL (8.6-10.3); Carbon Dioxide 29 mEq/L (23-29); Chloride 97 mEq/L (98-107); Glucose 168 mg/dL (70-105); Magnesium 2.3 mg/dL (1.6-2.6); Osmolality,Calculated 280 (280-300); Potassium 3.9 mEq/L (3.5-5.1); Sodium 133 mEq/L (136-145); eGFR For African Americans > 60 (> 60); eGFR For Non-African Americans > 60 (> 60)
[2022-05-01] MEDS: *HR* Heparin 5,000 UNIT/ML VIAL SQ SCH ×3 (05:00→21:03)
[2022-05-01] MEDS: Aspirin Enteric Coated 81 MG Tablet PO SCH (08:11)
[2022-05-01] MEDS: Gabapentin 300 MG CAPSULE PO SCH ×3 (08:11→20:13)
[2022-05-01] MEDS: Metoprolol XL (24 HR) Succ 25 MG TAB.ER.24H PO SCH ×2 (08:12→20:14)
[2022-05-01] MEDS: Chlorhexidine Rinse 15 ML MOUTHWASH MM SCH ×2 (08:12→20:13)
[2022-05-01] MEDS: Insulin LISPRO 300 UNITS/3 ML VIAL SUBQ SCH ×4 (08:13→20:14)
[2022-05-01] MEDS: Insulin DETEMIR 100 UNIT/ML X5UNITS SUBQ SCH ×2 (08:13→20:13)
[2022-05-02 03:05] LABS: Basophils % 0.3 %; Eosinophils # 0.4 K/mcL (0.0-0.6); Eosinophils % 3.1 %; Hematocrit 27.4 % (37.5-50.1); Hemoglobin 9.4 g/dL (12.9-16.9); Immature Granulocytes % 0.7 % (0-4); Lymphocytes # 3.2 K/mcL (0.6-4.6); Lymphocytes % 23.2 %; Mean Corpuscular HGB Conc 34.3 g/dL (31.6-35.5); Mean Corpuscular Hemoglobin 26.1 pg (28.0-33.3); Mean Corpuscular Volume 76.1 fL (83.0-100.0); Mean Platelet Volume 8.5 fL (9.4-12.4); Monocytes # 1.4 K/mcL (0.0-1.3); Monocytes % 10.1 %; Neutrophils # 8.6 K/mcL (1.6-8.9); Platelet Count 403 K/mcL (140-400); Red Cell Distribution Width 12.3 % (11.5-14.5); Segmented Neutrophils % 62.6 %; White Blood Count 13.7 K/mcL (4.3-11.1)
[2022-05-02 03:26] LABS: BUN/Creatinine Ratio 20 (6-26); Blood Urea Nitrogen 19 mg/dL (6-20); Calcium 8.7 mg/dL (8.6-10.3); Carbon Dioxide 29 mEq/L (23-29); Chloride 99 mEq/L (98-107); Glucose 144 mg/dL (70-105); Magnesium 2.4 mg/dL (1.6-2.6); Osmolality,Calculated 285 (280-300); Potassium 3.9 mEq/L (3.5-5.1); Sodium 135 mEq/L (136-145); eGFR For African Americans > 60 (> 60); eGFR For Non-African Americans > 60 (> 60)
[2022-05-02] MEDS: *HR* Heparin 5,000 UNIT/ML VIAL SQ SCH ×3 (05:02→21:17)
[2022-05-02] MEDS: Chlorhexidine Rinse 15 ML MOUTHWASH MM SCH ×2 (07:23→21:17)
[2022-05-02] MEDS: Gabapentin 300 MG CAPSULE PO SCH ×3 (07:23→21:18)
[2022-05-02] MEDS: Metoprolol XL (24 HR) Succ 25 MG TAB.ER.24H PO SCH ×2 (07:23→21:18)
[2022-05-02] MEDS: Aspirin Enteric Coated 81 MG Tablet PO SCH (07:23)
[2022-05-02] MEDS: Insulin DETEMIR 100 UNIT/ML X5UNITS SUBQ SCH ×2 (07:26→21:18)
[2022-05-02] MEDS: Insulin LISPRO 300 UNITS/3 ML VIAL SUBQ SCH ×4 (07:28→21:19)
[2022-05-02] MEDS: Acetaminophen 325 MG TABLET PO PRN (21:31)
[2022-05-03 03:27] LABS: Mean Corpuscular HGB Conc 34.6 g/dL (31.6-35.5); Mean Corpuscular Hemoglobin 26.3 pg (28.0-33.3); Mean Platelet Volume 8.5 fL (9.4-12.4); Platelet Count 396 K/mcL (140-400); Red Blood Count 3.42 M/mcL (4.19-5.50); Red Cell Distribution Width 12.4 % (11.5-14.5); White Blood Count 14.1 K/mcL (4.3-11.1)
[2022-05-03 03:45] LABS: BUN/Creatinine Ratio 22 (6-26); Blood Urea Nitrogen 17 mg/dL (6-20); Calcium 8.3 mg/dL (8.6-10.3); Carbon Dioxide 24 mEq/L (23-29); Chloride 102 mEq/L (98-107); Glucose 187 mg/dL (70-105); Magnesium 2.1 mg/dL (1.6-2.6); Osmolality,Calculated 284 (280-300); Potassium 3.9 mEq/L (3.5-5.1); Sodium 134 mEq/L (136-145); eGFR For African Americans > 60 (> 60); eGFR For Non-African Americans > 60 (> 60)
[2022-05-03] MEDS: *HR* Heparin 5,000 UNIT/ML VIAL SQ SCH (05:39)
[2022-05-03] MEDS: Acetaminophen 325 MG TABLET PO PRN (05:53)
[2022-05-03] MEDS: Gabapentin 300 MG CAPSULE PO SCH (08:47)
[2022-05-03] MEDS: Chlorhexidine Rinse 15 ML MOUTHWASH MM SCH (08:47)
[2022-05-03] MEDS: Aspirin Enteric Coated 81 MG Tablet PO SCH (08:47)
[2022-05-03] MEDS: Metoprolol XL (24 HR) Succ 25 MG TAB.ER.24H PO SCH (08:47)
[2022-05-03] MEDS: *HR* OxyCODONE/APAP 5/325 TABLET PO PRN (08:49)
[2022-05-03] MEDS: Insulin LISPRO 300 UNITS/3 ML VIAL SUBQ SCH (08:53)
[2022-05-03] MEDS: Insulin DETEMIR 100 UNIT/ML X5UNITS SUBQ SCH (09:04)
[2022-05-03] MEDS ORDERED: Ketorolac 30 MG/ML VIAL IVP ONE (10:00)
[2022-05-03 11:01] VITALS: BP 116/79
[2022-05-03 12:45] VITALS: PULSE 90; O2SAT 98
[2022-05-03 15:04] VITALS: TEMP 98
== END 2022-05-03 16:37 | disposition home or self-care (01) | DRG 165 ==
LOC: EMEROOARM 13:42 → ICNU 17:45 → SUATTDRO 18:10 → ICNU 18:10
PROVIDERS: ADMIT Internal Medicine; ATTEND Internal Medicine

== ENCOUNTER 2022-06-01 12:04 | Inpatient (IN) ==
[2022-06-01 13:11] LABS: Basophils % 0.2 %; Eosinophils % 0.1 %; Hematocrit 36.2 % (37.5-50.1); Immature Granulocytes % 0.6 % (0-4); Lymphocytes % 6.4 %; Mean Corpuscular HGB Conc 33.1 g/dL (31.6-35.5); Mean Corpuscular Hemoglobin 25.4 pg (28.0-33.3); Mean Corpuscular Volume 76.5 fL (83.0-100.0); Mean Platelet Volume 8.4 fL (9.4-12.4); Monocytes # 1.4 K/mcL (0.0-1.3); Monocytes % 8.6 %; Neutrophils # 13.5 K/mcL (1.6-8.9); Platelet Count 379 K/mcL (140-400); Red Blood Count 4.73 M/mcL (4.19-5.50); Red Cell Distribution Width 13.5 % (11.5-14.5); Segmented Neutrophils % 84.1 %; White Blood Count 16.1 K/mcL (4.3-11.1)
[2022-06-01] MEDS ORDERED: Ondansetron 4 MG/2 ML VIAL IVP ONE ×2 (13:26→15:52)
[2022-06-01] MEDS ORDERED: 0.9 % Sodium Chloride 1,000 ML IVC ONE (13:26)
[2022-06-01] MEDS ORDERED: Nitroglycerin 0.4 MG TAB.SUBL SL PRN (13:26)
[2022-06-01 13:33] LABS: BUN/Creatinine Ratio 13 (6-26); Blood Urea Nitrogen 9 mg/dL (6-20); Calcium 9.4 mg/dL (8.6-10.3); Carbon Dioxide 14 mEq/L (23-29); Chloride 100 mEq/L (98-107); Glucose 174 mg/dL (70-105); Osmolality,Calculated 279 (280-300); Sodium 133 mEq/L (136-145); Troponin I < 0.03 ng/mL (< 0.04)
[2022-06-01 13:50] LABS: INR 1.3; Prothrombin Time 14.9 Seconds (9.4-12.1)
[2022-06-01] MEDS ORDERED: Iopamidol - 370 500 ML MLS IVP ONE (14:15)
[2022-06-01 14:56] LABS: Influenza A PCR Negative (Negative); Influenza B PCR Negative (Negative); Resp. Syncytial Virus PCR Negative (Negative)
[2022-06-01 14:58] LABS: Alanine Aminotransferase 16 Units/L (7-52); Albumin 4.2 g/dL (3.5-5.7); Albumin/Globulin Ratio 1.2 (1.1-2.2); Alkaline Phosphatase 77 Units/L (34-104); Aspartate Amino Transferase 11 Units/L (13-39); Bilirubin,Direct 0.4 mg/dL (0.0-0.2); Bilirubin,Indirect 0.6 mg/dL (0.0-1.0); Globulin 3.6 g/dL (2.4-3.5); Lipase < 3 Units/L (11-82); Total Protein 7.8 g/dL (6.4-8.9)
[2022-06-01 15:14] LABS: SARS-CoV-2 by PCR (In House) Negative (Negative)
[2022-06-01] MEDS ORDERED: Azithromycin 500 MG in 0.9 % Sodium Chloride 250 ML IVPB ONE (15:50)
[2022-06-01] MEDS ORDERED: cefTRIAXone 2,000 MG in 0.9 % Sodium Chloride 20 ML IVP ONE (15:50)
[2022-06-01] MEDS ORDERED: Naloxone 0.4 MG/ML INJ IVP PRN (16:34)
[2022-06-01 16:52] LABS: Bilirubin,Urine Negative (Negative); Blood,Urine Trace (Negative); Clarity,Urine Clear (Clear); Color,Urine Yellow (Yellow); Glucose,Urine (UA) 50 mg/dL (Normal); Ketones,Urine >150 mg/dL (Negative); Leukocyte Esterase,Urine Negative (Negative); Nitrite,Urine Negative (Negative); PH,Urine 5.5 pH Units (5.0-8.0); Protein,Urine 70 mg/dL (Neg-Trace); RBC,Urine 0-3 per hpf (0-3); Specific Gravity,Urine > 1.030 (1.010-1.025); WBC,Urine 0-3 per hpf (0-3)
[2022-06-01 17:12] LABS: Amphetamine Screen,Urine Negative ng/mL (Cutoff=1000); Barbiturate Screen,Urine Negative ng/mL (Cutoff=200); Benzodiazepines Screen,Urine Negative ng/mL (Cutoff=200); Cannabinoid Screen,Urine Positive ng/mL (Cutoff = 50); Cocaine Screen,Urine Negative ng/mL (Cutoff= 300); Opiate Screen,Urine Negative ng/mL (Cutoff=300); Phencyclidine Screen,Urine Negative ng/mL (Cutoff=25)
[2022-06-01] MEDS ORDERED: D5% in Water 1,000 ML IVC PRN (17:47)
[2022-06-01] MEDS ORDERED: *HR* Dextrose 50 % in Water (Syg) 50 ML SYRINGE IVP PRN (17:47)
[2022-06-01] MEDS ORDERED: Dextrose Gel 15 GM/37.5 ML TUBE PO PRN ×2 (17:47)
[2022-06-01 20:06] LABS: Beta-Hydroxybutyric Acid > 2.00 mmol/L (0.02-0.27); Procalcitonin 0.04 ng/mL (0.00-0.15)
[2022-06-01 20:07] LABS: C-Reactive Protein 152 mg/L (Less than 10); Troponin I < 0.03 ng/mL (< 0.04)
[2022-06-01 20:38] LABS: VBG HCO3 17 mEq/L (21-27); VBG PCO2 31 mmHg (41-51); VBG PH 7.34 pH Units (7.32-7.42); VBG PO2 47 mmHg (25-50)
[2022-06-01 20:55] LABS: BUN/Creatinine Ratio 10 (6-26); Blood Urea Nitrogen 8 mg/dL (6-20); Calcium 9.4 mg/dL (8.6-10.3); Carbon Dioxide 17 mEq/L (23-29); Chloride 102 mEq/L (98-107); Glucose 209 mg/dL (70-105); Osmolality,Calculated 286 (280-300); Potassium 4.2 mEq/L (3.5-5.1); Sodium 136 mEq/L (136-145)
[2022-06-01] MEDS: Insulin LISPRO 300 UNITS/3 ML VIAL SUBQ SCH ×2 (21:47→21:49)
[2022-06-01] MEDS: Insulin DETEMIR 100 UNIT/ML X5UNITS SUBQ SCH (21:48)
[2022-06-01] MEDS: 0.9 % Sodium Chloride 1,000 ML IVC SCH (21:49)
[2022-06-01] MEDS ORDERED: Prochlorperazine 10 MG/2 ML VIAL IVP ONE (21:58)
[2022-06-02 06:32] LABS: Basophils % 0.2 %; Eosinophils % 0.3 %; Hematocrit 32.9 % (37.5-50.1); Hemoglobin 10.9 g/dL (12.9-16.9); Immature Granulocytes % 0.4 % (0-4); Lymphocytes % 14.8 %; Mean Corpuscular HGB Conc 33.1 g/dL (31.6-35.5); Mean Corpuscular Hemoglobin 25.2 pg (28.0-33.3); Mean Platelet Volume 9.1 fL (9.4-12.4); Monocytes # 1.7 K/mcL (0.0-1.3); Monocytes % 12.7 %; Neutrophils # 9.5 K/mcL (1.6-8.9); Platelet Count 353 K/mcL (140-400); Red Blood Count 4.33 M/mcL (4.19-5.50); Red Cell Distribution Width 13.4 % (11.5-14.5); Segmented Neutrophils % 71.6 %; White Blood Count 13.3 K/mcL (4.3-11.1)
[2022-06-02 06:52] LABS: % Iron Saturation 5 % (20-55); BUN/Creatinine Ratio 8 (6-26); Blood Urea Nitrogen 6 mg/dL (6-20); Carbon Dioxide 20 mEq/L (23-29); Chloride 105 mEq/L (98-107); Glucose 144 mg/dL (70-105); Iron 14 mcg/dL (65-175); Osmolality,Calculated 284 (280-300); Phosphorous 3.2 mg/dL (2.7-4.5); Sodium 137 mEq/L (136-145); Transferrin 194 mg/dL (203-362)
[2022-06-02] MEDS: Insulin LISPRO 300 UNITS/3 ML VIAL SUBQ SCH ×4 (07:29→20:51)
[2022-06-02] MEDS: Aspirin Enteric Coated 81 MG Tablet PO SCH (07:37)
[2022-06-02] MEDS: cefTRIAXone 2,000 MG in 0.9 % Sodium Chloride 20 ML IVP SCH (07:37)
[2022-06-02] MEDS: 0.9 % Sodium Chloride 1,000 ML IVC SCH (07:37)
[2022-06-02] MEDS: Ondansetron 4 MG/2 ML VIAL IVP PRN ×2 (07:43→22:04)
[2022-06-02] MEDS ORDERED: Azithromycin 500 MG in 0.9 % Sodium Chloride 250 ML IVPB SCH (16:00)
[2022-06-02] MEDS: Insulin DETEMIR 100 UNIT/ML X5UNITS SUBQ SCH (20:52)
[2022-06-03] MEDS ORDERED: Acetaminophen IV 500 MG/50 ML BAG IVPB ONE (02:48)
[2022-06-03] MEDS ORDERED: Prochlorperazine 10 MG/2 ML VIAL IVP ONE (02:48)
[2022-06-03 03:35] LABS: Segmented Neutrophils % 78.5 %; White Blood Count 13.9 K/mcL (4.3-11.1)
[2022-06-03 03:37] LABS: Basophils % 0.2 %; Eosinophils % 0.3 %; Hematocrit 35.1 % (37.5-50.1); Hemoglobin 11.5 g/dL (12.9-16.9); Immature Granulocytes % 0.5 % (0-4); Immature Platelets 0.9 % (1.1-6.1); Lymphocytes # 1.5 K/mcL (0.6-4.6); Mean Corpuscular HGB Conc 32.8 g/dL (31.6-35.5); Mean Corpuscular Hemoglobin 25.1 pg (28.0-33.3); Mean Corpuscular Volume 76.6 fL (83.0-100.0); Monocytes # 1.3 K/mcL (0.0-1.3); Monocytes % 9.5 %; Neutrophils # 10.9 K/mcL (1.6-8.9); Platelet Count 343 K/mcL (140-400); Red Blood Count 4.58 M/mcL (4.19-5.50); Red Cell Distribution Width 13.7 % (11.5-14.5)
[2022-06-03 03:54] LABS: BUN/Creatinine Ratio 8 (6-26); Blood Urea Nitrogen 5 mg/dL (6-20); C-Reactive Protein 118 mg/L (Less than 10); Calcium 9.2 mg/dL (8.6-10.3); Carbon Dioxide 22 mEq/L (23-29); Chloride 102 mEq/L (98-107); Glucose 125 mg/dL (70-105); Osmolality,Calculated 283 (280-300); Potassium 4.1 mEq/L (3.5-5.1); Sodium 137 mEq/L (136-145)
[2022-06-03 04:07] LABS: Hypochromasia Present (Not Present); Poikilocytosis 1+ (Not Present)
[2022-06-03] MEDS: Insulin LISPRO 300 UNITS/3 ML VIAL SUBQ SCH ×2 (07:40→11:24)
[2022-06-03] MEDS: Aspirin Enteric Coated 81 MG Tablet PO SCH (07:40)
[2022-06-03] MEDS: cefTRIAXone 2,000 MG in 0.9 % Sodium Chloride 20 ML IVP SCH (07:48)
[2022-06-03] MEDS ORDERED: Metoprolol XL (24 HR) Succ 25 MG TAB.ER.24H PO SCH (09:00)
[2022-06-03 10:09] LABS: Hematocrit 33.3 % (37.5-50.1); Hemoglobin 10.9 g/dL (12.9-16.9); Mean Corpuscular HGB Conc 32.7 g/dL (31.6-35.5); Mean Corpuscular Hemoglobin 24.5 pg (28.0-33.3); Mean Corpuscular Volume 74.8 fL (83.0-100.0); Mean Platelet Volume 8.3 fL (9.4-12.4); Platelet Count 405 K/mcL (140-400); Red Blood Count 4.45 M/mcL (4.19-5.50); Red Cell Distribution Width 13.5 % (11.5-14.5)
[2022-06-03 10:16] LABS: INR 1.4; Prothrombin Time 15.9 Seconds (9.4-12.1)
[2022-06-03 10:19] LABS: Activated Partial Thrombo Time 33.2 Seconds (26.0-36.0)
[2022-06-03 10:29] LABS: BUN/Creatinine Ratio 8 (6-26); Blood Urea Nitrogen 5 mg/dL (6-20); Carbon Dioxide 23 mEq/L (23-29); Chloride 102 mEq/L (98-107); Glucose 151 mg/dL (70-105); Osmolality,Calculated 286 (280-300); Potassium 3.3 mEq/L (3.5-5.1); Sodium 138 mEq/L (136-145)
[2022-06-03] MEDS ORDERED: Ipratropium/Albuterol Neb 3 ML IH PRN ×2 (13:23→18:15)
[2022-06-03] MEDS ORDERED: Ipratropium 1 PUFF INHALER IH PRN ×2 (13:23→18:15)
[2022-06-03] MEDS ORDERED: Albuterol 2.5 MG/3 ML NEBULIZER IH PRN ×2 (13:23→18:15)
[2022-06-03] MEDS ORDERED: *HR* Acetaminophen w/Cod 300-30 mg 1 TAB TABLET PO PRN ×2 (13:23→18:15)
[2022-06-03] MEDS ORDERED: Heparin 1,000 UNITS/500 mL 500 ML ONE (13:55)
[2022-06-03] MEDS ORDERED: Bupivacaine/EPI 1:200k 0.25% 50 ML VIAL ONE (14:15)
[2022-06-03] MEDS ORDERED: Ondansetron 4 MG/2 ML VIAL IVP PRN (14:19)
[2022-06-03] MEDS ORDERED: *HR* OxyCODONE Immed Rel 5 MG TABLET PO PRN (14:19)
[2022-06-03] MEDS ORDERED: *HR* Metoprolol 5 MG/5 ML VIAL IVP PRN (14:19)
[2022-06-03] MEDS ORDERED: *HR* Midazolam HCl 2 MG/2 ML VIAL ONE (14:23)
[2022-06-03] MEDS ORDERED: NiCARdipine 2.5 MG/10 ML Syringe IVPB ONE (14:23)
[2022-06-03] MEDS ORDERED: Bupivacaine 0.5%-Epi 1:200,000 50 ML VIAL ONE (14:24)
[2022-06-03] MEDS ORDERED: Famotidine 20 MG/2 ML VIAL ONE (14:25)
[2022-06-03] MEDS ORDERED: Ondansetron 4 MG/2 ML VIAL ONE ×2 (14:25→15:14)
[2022-06-03] MEDS ORDERED: *HR* FentaNYL (PF) 250 MCG/5 ML VIAL ONE (14:27)
[2022-06-03] MEDS ORDERED: *HR* Propofol 200 MG/20 ML VIAL IVP ONE (14:28)
[2022-06-03] MEDS ORDERED: *HR* Etomidate 20 MG/10 ML AMPUL IVP ONE (14:28)
[2022-06-03] MEDS ORDERED: *HR* Succinylcholine 200 MG/10 ML VIAL IVP ONE (14:29)
[2022-06-03] MEDS ORDERED: *HR* Rocuronium Bromide 50 MG/5 ML VIAL ONE (14:36)
[2022-06-03] MEDS ORDERED: Lidocaine 2% Syringe 100 MG/5 ML ONE (14:38)
[2022-06-03] MEDS ORDERED: Acetaminophen IV 1,000 MG/100 ML BAG IVPB ONE ×2 (15:21→15:25)
[2022-06-03] MEDS ORDERED: CeFAZolin Syr 2,000MG/20 ML 2,000 MG/20 ML SYRINGE IVPB ONE (15:30)
[2022-06-03] MEDS ORDERED: Ketamine HCL *QUVA* 50mg (1mL) SYRINGE ONE (16:29)
[2022-06-03] MEDS: *HR* HYDROmorphone PF 0.5 MG/0.5 ML SYRINGE IVP PRN ×4 (17:05→17:45)
[2022-06-03] MEDS ORDERED: *HR* Dextrose 50 % in Water (Syg) 50 ML SYRINGE IVP PRN (18:15)
[2022-06-03] MEDS ORDERED: Naloxone 0.4 MG/ML INJ IVP PRN (18:15)
[2022-06-03] MEDS ORDERED: D5% in Water 1,000 ML IVC PRN (18:15)
[2022-06-03] MEDS ORDERED: Dextrose Gel 15 GM/37.5 ML TUBE PO PRN ×2 (18:15)
[2022-06-03] MEDS ORDERED: Nitroglycerin 0.4 MG TAB.SUBL SL PRN (18:15)
[2022-06-03] MEDS ORDERED: Albumin Human 5% 12.5 GM/250 ML IV.SOLN ONE (19:27)
[2022-06-03] MEDS: Albumin Human 5% 12.5 GM/250 ML IV.SOLN IVPB PRN ×4 (19:29→19:50)
[2022-06-03] MEDS ORDERED: Albumin Human 5% 37.5 GM/750 ML IV.SOLN ONE (19:32)
[2022-06-03] MEDS ORDERED: Norepinephrine 4 MG/254 ML IV.SOLN IVC ONE (19:47)
[2022-06-03] MEDS: Norepinephrine 4 MG/254 ML IV.SOLN IVC SCH (20:45)
[2022-06-03] MEDS ORDERED: NON-FORMULARY MEDICATION 1 EACH EACH (Insulin Aspart Prot/Insuln Asp [Novolog Mix 70-30 Fl SQ SCH (21:00)
[2022-06-03] MEDS ORDERED: Insulin LISPRO 300 UNITS/3 ML VIAL SUBQ SCH (21:00)
[2022-06-03] MEDS ORDERED: Insulin DETEMIR 100 UNIT/ML X5UNITS SUBQ SCH (21:00)
[2022-06-03] MEDS: Ondansetron 4 MG/2 ML VIAL IVP PRN (22:12)
[2022-06-03] MEDS: Metoprolol XL (24 HR) Succ 25 MG TAB.ER.24H PO SCH (22:18)
[2022-06-03] MEDS ORDERED: Ringers Solution, Lactated 500 ML IVC ONE (22:26)
[2022-06-03] MEDS ORDERED: *HR* LORazepam 1 MG TABLET PO PRN ×3 (23:45)
[2022-06-04 01:07] LABS: Basophils % 0.1 %; Hematocrit 25.7 % (37.5-50.1); Immature Granulocytes % 1.1 % (0-4); Lymphocytes # 1.1 K/mcL (0.6-4.6); Lymphocytes % 4.7 %; Mean Corpuscular HGB Conc 33.1 g/dL (31.6-35.5); Mean Corpuscular Volume 75.6 fL (83.0-100.0); Mean Platelet Volume 8.4 fL (9.4-12.4); Monocytes # 1.9 K/mcL (0.0-1.3); Monocytes % 7.8 %; Neutrophils # 20.7 K/mcL (1.6-8.9); Platelet Count 416 K/mcL (140-400); Red Cell Distribution Width 13.7 % (11.5-14.5); Segmented Neutrophils % 86.3 %
[2022-06-04 01:14] LABS: Alanine Aminotransferase 27 Units/L (7-52); Albumin 3.8 g/dL (3.5-5.7); Albumin/Globulin Ratio 1.5 (1.1-2.2); Alkaline Phosphatase 55 Units/L (34-104); Aspartate Amino Transferase 25 Units/L (13-39); BUN/Creatinine Ratio 12 (6-26); Bilirubin,Total 1.6 mg/dL (0.3-1.0); Blood Urea Nitrogen 13 mg/dL (6-20); Calcium 8.1 mg/dL (8.6-10.3); Carbon Dioxide 14 mEq/L (23-29); Chloride 98 mEq/L (98-107); Globulin 2.5 g/dL (2.4-3.5); Glucose 285 mg/dL (70-105); Osmolality,Calculated 286 (280-300); Potassium 4.3 mEq/L (3.5-5.1); Sodium 133 mEq/L (136-145); Total Protein 6.3 g/dL (6.4-8.9)
[2022-06-04 01:31] LABS: Hemoglobin 8.5 g/dL (12.9-16.9)
[2022-06-04] MEDS ORDERED: Ondansetron 4 MG/2 ML VIAL IVP ONE (02:11)
[2022-06-04 04:01] LABS: BUN/Creatinine Ratio 12 (6-26); Blood Urea Nitrogen 13 mg/dL (6-20); Calcium 8.4 mg/dL (8.6-10.3); Carbon Dioxide 19 mEq/L (23-29); Chloride 97 mEq/L (98-107); Glucose 280 mg/dL (70-105); Magnesium 1.8 mg/dL (1.6-2.6); Osmolality,Calculated 286 (280-300); Sodium 133 mEq/L (136-145)
[2022-06-04 05:14] LABS: Basophils % 0.1 %; Hematocrit 26.5 % (37.5-50.1); Hemoglobin 8.6 g/dL (12.9-16.9); Immature Granulocytes % 0.8 % (0-4); Lymphocytes # 1.6 K/mcL (0.6-4.6); Lymphocytes % 7.6 %; Mean Corpuscular HGB Conc 32.5 g/dL (31.6-35.5); Mean Corpuscular Hemoglobin 24.9 pg (28.0-33.3); Mean Corpuscular Volume 76.8 fL (83.0-100.0); Mean Platelet Volume 8.8 fL (9.4-12.4); Monocytes # 1.9 K/mcL (0.0-1.3); Neutrophils # 17.1 K/mcL (1.6-8.9); Platelet Count 381 K/mcL (140-400); Red Blood Count 3.45 M/mcL (4.19-5.50); Red Cell Distribution Width 13.8 % (11.5-14.5); Segmented Neutrophils % 82.5 %; White Blood Count 20.8 K/mcL (4.3-11.1)
[2022-06-04] MEDS ORDERED: Morphine Sulfate 2 MG/ML SYRINGE IVP ONE ×2 (05:33→20:55)
[2022-06-04] MEDS ORDERED: Calcium Gluconate 1gm/50mL 1 GM/50 ML BAG IVPB PRN ×2 (06:00→19:00)
[2022-06-04] MEDS: Ondansetron 4 MG/2 ML VIAL IVP PRN (07:54)
[2022-06-04] MEDS ORDERED: Aspirin Enteric Coated 81 MG Tablet PO SCH (09:00)
[2022-06-04] MEDS ORDERED: cefTRIAXone 2,000 MG in 0.9 % Sodium Chloride 20 ML IVP SCH (09:00)
[2022-06-04] MEDS: Metoprolol XL (24 HR) Succ 25 MG TAB.ER.24H PO SCH ×2 (10:24→19:44)
[2022-06-04] MEDS: Insulin LISPRO 300 UNITS/3 ML VIAL SUBQ SCH ×4 (10:31→19:44)
[2022-06-04] MEDS: Norepinephrine 4 MG/254 ML IV.SOLN IVC SCH ×2 (12:03→19:14)
[2022-06-04] MEDS ORDERED: Magnesium Sulfate 1 GM/102 ML PIGGYBACK IVPB ONE (13:17)
[2022-06-04] MEDS ORDERED: Prochlorperazine 10 MG/2 ML VIAL IVP PRN (13:29)
[2022-06-04 14:28] LABS: BUN/Creatinine Ratio 12 (6-26); Blood Urea Nitrogen 9 mg/dL (6-20); Calcium 8.8 mg/dL (8.6-10.3); Carbon Dioxide 28 mEq/L (23-29); Chloride 98 mEq/L (98-107); Glucose 186 mg/dL (70-105); Magnesium 2.1 mg/dL (1.6-2.6); Osmolality,Calculated 284 (280-300); Potassium 3.5 mEq/L (3.5-5.1); Sodium 135 mEq/L (136-145)
[2022-06-04] MEDS ORDERED: Azithromycin 500 MG in 0.9 % Sodium Chloride 250 ML IVPB SCH (16:00)
[2022-06-04] MEDS ORDERED: Thiamine (B-1) 100 MG, Folic Acid 1 MG, MVI, adult with vitamin K 10 ML in 0.9 % Sodi... IVPB SCH (18:00)
[2022-06-04] MEDS ORDERED: Ipratropium/Albuterol Neb 3 ML IH PRN (19:00)
[2022-06-04] MEDS ORDERED: Ipratropium 1 PUFF INHALER IH PRN (19:00)
[2022-06-04] MEDS ORDERED: *HR* Dextrose 50 % in Water (Syg) 50 ML SYRINGE IVP PRN (19:00)
[2022-06-04] MEDS ORDERED: Albumin Human 5% 12.5 GM/250 ML IV.SOLN IVPB PRN (19:00)
[2022-06-04] MEDS ORDERED: D5% in Water 1,000 ML IVC PRN (19:00)
[2022-06-04] MEDS ORDERED: Nitroglycerin 0.4 MG TAB.SUBL SL PRN (19:00)
[2022-06-04] MEDS ORDERED: Albuterol 2.5 MG/3 ML NEBULIZER IH PRN (19:00)
[2022-06-04] MEDS ORDERED: *HR* LORazepam 1 MG TABLET PO PRN ×3 (19:00)
[2022-06-04] MEDS ORDERED: Ondansetron 4 MG/2 ML VIAL IVP PRN (19:00)
[2022-06-04] MEDS ORDERED: Dextrose Gel 15 GM/37.5 ML TUBE PO PRN ×2 (19:00)
[2022-06-04] MEDS ORDERED: Naloxone 0.4 MG/ML INJ IVP PRN (19:00)
[2022-06-04] MEDS: Insulin DETEMIR 100 UNIT/ML X5UNITS SUBQ SCH (19:44)
[2022-06-04] MEDS ORDERED: Insulin DETEMIR 100 UNIT/ML X5UNITS SUBQ SCH (21:00)
[2022-06-04] MEDS: Pantoprazole 40 MG VIAL IVP SCH (21:58)
[2022-06-04] MEDS: Simethicone 80 MG TAB.CHEW PO PRN (21:59)
[2022-06-04] MEDS: Prochlorperazine 10 MG/2 ML VIAL IVP PRN (21:59)
[2022-06-05 01:34] LABS: Basophils # 0.1 K/mcL (0.0-0.2); Basophils % 0.3 %; Eosinophils % 0.3 %; Hematocrit 25.4 % (37.5-50.1); Hemoglobin 8.3 g/dL (12.9-16.9); Immature Granulocytes % 0.3 % (0-4); Lymphocytes # 1.7 K/mcL (0.6-4.6); Lymphocytes % 11.3 %; Mean Corpuscular HGB Conc 32.7 g/dL (31.6-35.5); Mean Corpuscular Hemoglobin 24.3 pg (28.0-33.3); Mean Corpuscular Volume 74.3 fL (83.0-100.0); Mean Platelet Volume 8.5 fL (9.4-12.4); Monocytes # 1.4 K/mcL (0.0-1.3); Monocytes % 9.2 %; Neutrophils # 11.6 K/mcL (1.6-8.9); Platelet Count 367 K/mcL (140-400); Red Blood Count 3.42 M/mcL (4.19-5.50); Red Cell Distribution Width 13.8 % (11.5-14.5); Segmented Neutrophils % 78.6 %; White Blood Count 14.8 K/mcL (4.3-11.1)
[2022-06-05 01:54] LABS: BUN/Creatinine Ratio 13 (6-26); Blood Urea Nitrogen 8 mg/dL (6-20); Calcium 8.3 mg/dL (8.6-10.3); Carbon Dioxide 27 mEq/L (23-29); Chloride 101 mEq/L (98-107); Glucose 158 mg/dL (70-105); Magnesium 2.2 mg/dL (1.6-2.6); Osmolality,Calculated 288 (280-300); Phosphorous 2.2 mg/dL (2.7-4.5); Potassium 3.6 mEq/L (3.5-5.1); Sodium 138 mEq/L (136-145)
[2022-06-05] MEDS: Simethicone 80 MG TAB.CHEW PO PRN ×2 (05:04→14:55)
[2022-06-05] MEDS: *HR* Acetaminophen w/Cod 300-30 mg 1 TAB TABLET PO PRN ×2 (05:05→14:55)
[2022-06-05] MEDS: Insulin LISPRO 300 UNITS/3 ML VIAL SUBQ SCH ×4 (09:24→20:32)
[2022-06-05] MEDS: Aspirin Enteric Coated 81 MG Tablet PO SCH (09:25)
[2022-06-05] MEDS: Insulin DETEMIR 100 UNIT/ML X5UNITS SUBQ SCH ×2 (09:25→20:35)
[2022-06-05] MEDS: Pantoprazole 40 MG VIAL IVP SCH (09:25)
[2022-06-05] MEDS: Metoprolol XL (24 HR) Succ 25 MG TAB.ER.24H PO SCH ×2 (09:26→20:32)
[2022-06-05] MEDS: cefTRIAXone 2,000 MG in 0.9 % Sodium Chloride 20 ML IVP SCH (09:26)
[2022-06-05] MEDS: Azithromycin 500 MG in 0.9 % Sodium Chloride 250 ML IVPB SCH (17:54)
[2022-06-05] MEDS: Thiamine (B-1) 100 MG, Folic Acid 1 MG, MVI, adult with vitamin K 10 ML in 0.9 % Sodi... IVPB SCH (19:06)
[2022-06-05] MEDS: Norepinephrine 4 MG/254 ML IV.SOLN IVC SCH ×2 (19:41→22:09)
[2022-06-06] MEDS: Simethicone 80 MG TAB.CHEW PO PRN (05:28)
[2022-06-06] MEDS: *HR* Acetaminophen w/Cod 300-30 mg 1 TAB TABLET PO PRN (05:29)
[2022-06-06 05:50] LABS: Basophils % 0.2 %; Eosinophils # 0.1 K/mcL (0.0-0.6); Hematocrit 24.1 % (37.5-50.1); Immature Granulocytes % 0.6 % (0-4); Lymphocytes # 2.2 K/mcL (0.6-4.6); Lymphocytes % 16.5 %; Mean Corpuscular HGB Conc 33.2 g/dL (31.6-35.5); Mean Corpuscular Hemoglobin 24.8 pg (28.0-33.3); Mean Corpuscular Volume 74.6 fL (83.0-100.0); Mean Platelet Volume 8.3 fL (9.4-12.4); Monocytes # 1.5 K/mcL (0.0-1.3); Neutrophils # 9.6 K/mcL (1.6-8.9); Platelet Count 405 K/mcL (140-400); Red Blood Count 3.23 M/mcL (4.19-5.50); Red Cell Distribution Width 13.7 % (11.5-14.5); Segmented Neutrophils % 70.7 %; White Blood Count 13.6 K/mcL (4.3-11.1)
[2022-06-06 06:28] LABS: BUN/Creatinine Ratio 10 (6-26); Blood Urea Nitrogen 7 mg/dL (6-20); Calcium 8.4 mg/dL (8.6-10.3); Carbon Dioxide 29 mEq/L (23-29); Chloride 99 mEq/L (98-107); Glucose 129 mg/dL (70-105); Osmolality,Calculated 284 (280-300); Phosphorous 2.4 mg/dL (2.7-4.5); Potassium 3.3 mEq/L (3.5-5.1); Sodium 137 mEq/L (136-145)
[2022-06-06] MEDS: cefTRIAXone 2,000 MG in 0.9 % Sodium Chloride 20 ML IVP SCH (09:11)
[2022-06-06] MEDS: Pantoprazole 40 MG VIAL IVP SCH (09:13)
[2022-06-06] MEDS: Aspirin Enteric Coated 81 MG Tablet PO SCH (09:16)
[2022-06-06] MEDS: Metoprolol XL (24 HR) Succ 25 MG TAB.ER.24H PO SCH ×2 (09:17→21:18)
[2022-06-06] MEDS: Insulin DETEMIR 100 UNIT/ML X5UNITS SUBQ SCH ×2 (09:17→21:18)
[2022-06-06] MEDS: Insulin LISPRO 300 UNITS/3 ML VIAL SUBQ SCH ×4 (09:18→21:18)
[2022-06-06] MEDS ORDERED: SODIUM CHLORIDE/NAHCO3/KCL/PEG 4,000 ML SOLN.RECON PO ONE (17:00)
[2022-06-06] MEDS: Azithromycin 500 MG in 0.9 % Sodium Chloride 250 ML IVPB SCH (17:52)
[2022-06-06] MEDS: Thiamine (B-1) 100 MG, Folic Acid 1 MG, MVI, adult with vitamin K 10 ML in 0.9 % Sodi... IVPB SCH (18:39)
[2022-06-06] MEDS: Norepinephrine 4 MG/254 ML IV.SOLN IVC SCH ×2 (19:37→23:21)
[2022-06-07] MEDS: *HR* Acetaminophen w/Cod 300-30 mg 1 TAB TABLET PO PRN (01:57)
[2022-06-07] MEDS: Prochlorperazine 10 MG/2 ML VIAL IVP PRN (02:02)
[2022-06-07 06:17] LABS: BUN/Creatinine Ratio 10 (6-26); Blood Urea Nitrogen 7 mg/dL (6-20); Calcium 8.9 mg/dL (8.6-10.3); Carbon Dioxide 29 mEq/L (23-29); Chloride 101 mEq/L (98-107); Glucose 111 mg/dL (70-105); Magnesium 2.1 mg/dL (1.6-2.6); Osmolality,Calculated 283 (280-300); Phosphorous 3.3 mg/dL (2.7-4.5); Potassium 3.7 mEq/L (3.5-5.1); Sodium 137 mEq/L (136-145)
[2022-06-07 06:22] LABS: Basophils # 0.1 K/mcL (0.0-0.2); Basophils % 0.3 %; Eosinophils # 0.2 K/mcL (0.0-0.6); Eosinophils % 1.4 %; Hematocrit 26.7 % (37.5-50.1); Hemoglobin 8.6 g/dL (12.9-16.9); Immature Granulocytes % 0.7 % (0-4); Lymphocytes # 2.4 K/mcL (0.6-4.6); Lymphocytes % 15.1 %; Mean Corpuscular HGB Conc 32.2 g/dL (31.6-35.5); Mean Corpuscular Hemoglobin 24.4 pg (28.0-33.3); Mean Corpuscular Volume 75.6 fL (83.0-100.0); Mean Platelet Volume 8.4 fL (9.4-12.4); Monocytes # 1.9 K/mcL (0.0-1.3); Monocytes % 12.1 %; Platelet Count 518 K/mcL (140-400); Red Blood Count 3.53 M/mcL (4.19-5.50); Red Cell Distribution Width 13.8 % (11.5-14.5); Segmented Neutrophils % 70.4 %; White Blood Count 15.7 K/mcL (4.3-11.1)
[2022-06-07] MEDS: Insulin LISPRO 300 UNITS/3 ML VIAL SUBQ SCH ×2 (07:30→12:53)
[2022-06-07] MEDS: Pantoprazole 40 MG VIAL IVP SCH (08:55)
[2022-06-07] MEDS: cefTRIAXone 2,000 MG in 0.9 % Sodium Chloride 20 ML IVP SCH (09:13)
[2022-06-07] MEDS: Metoprolol XL (24 HR) Succ 25 MG TAB.ER.24H PO SCH (09:14)
[2022-06-07] MEDS: Aspirin Enteric Coated 81 MG Tablet PO SCH (09:14)
[2022-06-07] MEDS: Insulin DETEMIR 100 UNIT/ML X5UNITS SUBQ SCH (11:06)
[2022-06-07 14:58] VITALS: BP 126/81; PULSE 106; TEMP 98.5; O2SAT 99
[2022-06-07] MEDS ORDERED: *HR* Propofol 200 MG/20 ML VIAL IVP ONE (15:11)
[2022-06-07] MEDS ORDERED: Lidocaine -MPF 2% 5 ML VIAL ONE (15:11)
[2022-06-07] MEDS: Azithromycin 500 MG in 0.9 % Sodium Chloride 250 ML IVPB SCH (16:11)
== END 2022-06-07 18:23 | disposition home or self-care (01) | DRG 167 ==
LOC: EMEROOARM 12:04 → 3BNU 12:04 → SUATTDRO 17:42 → 3BNU 20:08 → 2NNU 06-03 18:10 → ICNU 06-03 23:03 → 2NNU 06-05 00:20
PROVIDERS: ADMIT Internal Medicine; ATTEND Internal Medicine
PROC: ENDOEBX (2022-06-07 15:30)

== ENCOUNTER 2022-06-15 17:09 | Inpatient (IN) ==
[2022-06-15] MEDS ORDERED: Iopamidol - 370 500 ML MLS IVP ONE ×2 (18:03→20:44)
[2022-06-15 18:29] LABS: Basophils % 0.2 %; Eosinophils # 0.1 K/mcL (0.0-0.6); Eosinophils % 0.3 %; Hematocrit 27.8 % (37.5-50.1); Immature Granulocytes % 0.7 % (0-4); Lymphocytes # 1.6 K/mcL (0.6-4.6); Lymphocytes % 9.1 %; Mean Corpuscular HGB Conc 32.4 g/dL (31.6-35.5); Mean Corpuscular Hemoglobin 23.9 pg (28.0-33.3); Mean Corpuscular Volume 73.7 fL (83.0-100.0); Mean Platelet Volume 8.2 fL (9.4-12.4); Monocytes # 1.8 K/mcL (0.0-1.3); Monocytes % 10.2 %; Neutrophils # 13.8 K/mcL (1.6-8.9); Platelet Count 654 K/mcL (140-400); Red Blood Count 3.77 M/mcL (4.19-5.50); Segmented Neutrophils % 79.5 %; White Blood Count 17.4 K/mcL (4.3-11.1)
[2022-06-15 18:40] LABS: Heparin anti-factor XA UFH 0.06 IU/mL (0.30-0.70); INR 1.5; Prothrombin Time 16.4 Seconds (9.4-12.1)
[2022-06-15 18:43] LABS: Activated Partial Thrombo Time 32.1 Seconds (26.0-36.0)
[2022-06-15] MEDS ORDERED: cefTRIAXone 1,000 MG in 0.9 % Sodium Chloride 10 ML IVP ONE (20:43)
[2022-06-15] MEDS ORDERED: Azithromycin 500 MG in 0.9 % Sodium Chloride 250 ML IVPB ONE (20:43)
[2022-06-15 21:47] LABS: BUN/Creatinine Ratio 18 (6-26); Blood Urea Nitrogen 12 mg/dL (6-20); Calcium 8.8 mg/dL (8.6-10.3); Carbon Dioxide 19 mEq/L (23-29); Chloride 99 mEq/L (98-107); Glucose 102 mg/dL (70-105); Osmolality,Calculated 276 (280-300); Potassium 4.4 mEq/L (3.5-5.1); Sodium 133 mEq/L (136-145); Troponin I < 0.03 ng/mL (< 0.04)
[2022-06-16] MEDS ORDERED: Ringers Solution, Lactated 1,000 ML IVC SCH ×2 (02:45→04:15)
[2022-06-16] MEDS ORDERED: Naloxone 0.4 MG/ML INJ IVP PRN (02:45)
[2022-06-16] MEDS ORDERED: D5% in Water 1,000 ML IVC PRN (04:16)
[2022-06-16] MEDS ORDERED: *HR* Dextrose 50 % in Water (Syg) 50 ML SYRINGE IVP PRN (04:16)
[2022-06-16] MEDS ORDERED: Dextrose Gel 15 GM/37.5 ML TUBE PO PRN ×2 (04:16)
[2022-06-16 05:52] LABS: Basophils % 0.2 %; Eosinophils # 0.1 K/mcL (0.0-0.6); Eosinophils % 0.4 %; Hematocrit 26.6 % (37.5-50.1); Hemoglobin 8.4 g/dL (12.9-16.9); Immature Granulocytes % 0.8 % (0-4); Lymphocytes # 1.6 K/mcL (0.6-4.6); Lymphocytes % 9.5 %; Mean Corpuscular HGB Conc 31.6 g/dL (31.6-35.5); Mean Corpuscular Hemoglobin 23.2 pg (28.0-33.3); Mean Corpuscular Volume 73.5 fL (83.0-100.0); Mean Platelet Volume 8.4 fL (9.4-12.4); Monocytes # 1.6 K/mcL (0.0-1.3); Monocytes % 9.7 %; Neutrophils # 13.4 K/mcL (1.6-8.9); Platelet Count 622 K/mcL (140-400); Red Blood Count 3.62 M/mcL (4.19-5.50); Segmented Neutrophils % 79.4 %; White Blood Count 16.9 K/mcL (4.3-11.1)
[2022-06-16] MEDS ORDERED: Vancomycin 2,000 MG/520 ML IV.SOLN IVPB ONE (06:00)
[2022-06-16] MEDS: Insulin LISPRO 300 UNITS/3 ML VIAL SUBQ SCH ×4 (06:05→23:59)
[2022-06-16] MEDS: Piperacillin/Tazobactam 3.375 GM in 0.9 % Sodium Chloride Mini Bag 100 ML IVPB SCH ×3 (07:31→23:58)
[2022-06-16 09:02] LABS: Alanine Aminotransferase 32 Units/L (7-52); Albumin 3.5 g/dL (3.5-5.7); Alkaline Phosphatase 97 Units/L (34-104); Aspartate Amino Transferase 19 Units/L (13-39); BUN/Creatinine Ratio 13 (6-26); Bilirubin,Total 1.2 mg/dL (0.3-1.0); Blood Urea Nitrogen 9 mg/dL (6-20); Calcium 8.9 mg/dL (8.6-10.3); Carbon Dioxide 18 mEq/L (23-29); Chloride 99 mEq/L (98-107); Globulin 3.6 g/dL (2.4-3.5); Glucose 117 mg/dL (70-105); Magnesium 2.1 mg/dL (1.6-2.6); Osmolality,Calculated 276 (280-300); Potassium 4.1 mEq/L (3.5-5.1); Sodium 133 mEq/L (136-145); Total Protein 7.1 g/dL (6.4-8.9)
[2022-06-16] MEDS: Aspirin Enteric Coated 81 MG Tablet PO SCH (13:29)
[2022-06-16] MEDS: Vancomycin 1,500 MG/265 ML IV.SOLN IVPB SCH ×2 (13:45→22:26)
[2022-06-16] MEDS: Metoprolol XL (24 HR) Succ 25 MG TAB.ER.24H PO SCH (20:35)
[2022-06-17] MEDS: Insulin LISPRO 300 UNITS/3 ML VIAL SUBQ SCH ×4 (05:32→23:45)
[2022-06-17] MEDS: Vancomycin 1,500 MG/265 ML IV.SOLN IVPB SCH (05:32)
[2022-06-17] MEDS ORDERED: *HR* Rocuronium Bromide 50 MG/5 ML VIAL ONE ×2 (06:11→08:04)
[2022-06-17] MEDS ORDERED: *HR* Midazolam HCl 5 MG/5 ML VIAL IVP ONE (06:11)
[2022-06-17] MEDS ORDERED: *HR* Propofol 200 MG/20 ML VIAL IVP ONE (06:11)
[2022-06-17] MEDS ORDERED: *HR* FentaNYL (PF) 250 MCG/5 ML VIAL ONE (06:11)
[2022-06-17] MEDS ORDERED: Bupivacaine/EPI 1:200k 0.25% 50 ML VIAL ONE (06:20)
[2022-06-17] MEDS ORDERED: Heparin 1,000 UNITS/500 mL 500 ML ONE (06:37)
[2022-06-17 06:45] LABS: Basophils % 0.3 %; Eosinophils # 0.1 K/mcL (0.0-0.6); Eosinophils % 0.5 %; Hematocrit 25.8 % (37.5-50.1); Hemoglobin 8.1 g/dL (12.9-16.9); Immature Granulocytes % 0.7 % (0-4); Lymphocytes # 1.6 K/mcL (0.6-4.6); Lymphocytes % 10.7 %; Mean Corpuscular HGB Conc 31.4 g/dL (31.6-35.5); Mean Corpuscular Hemoglobin 23.1 pg (28.0-33.3); Mean Corpuscular Volume 73.7 fL (83.0-100.0); Mean Platelet Volume 8.3 fL (9.4-12.4); Monocytes # 1.4 K/mcL (0.0-1.3); Monocytes % 9.5 %; Neutrophils # 11.9 K/mcL (1.6-8.9); Platelet Count 621 K/mcL (140-400); Red Cell Distribution Width 15.1 % (11.5-14.5); Segmented Neutrophils % 78.3 %; White Blood Count 15.1 K/mcL (4.3-11.1)
[2022-06-17 07:05] LABS: BUN/Creatinine Ratio 10 (6-26); Blood Urea Nitrogen 7 mg/dL (6-20); Calcium 8.7 mg/dL (8.6-10.3); Carbon Dioxide 23 mEq/L (23-29); Chloride 101 mEq/L (98-107); Glucose 141 mg/dL (70-105); Osmolality,Calculated 280 (280-300); Potassium 4.1 mEq/L (3.5-5.1); Sodium 135 mEq/L (136-145)
[2022-06-17 08:26] LABS: Amphetamine Screen,Urine Negative ng/mL (Cutoff=1000); Barbiturate Screen,Urine Negative ng/mL (Cutoff=200); Benzodiazepines Screen,Urine Negative ng/mL (Cutoff=200); Cannabinoid Screen,Urine Positive ng/mL (Cutoff = 50); Cocaine Screen,Urine Negative ng/mL (Cutoff= 300); Opiate Screen,Urine Negative ng/mL (Cutoff=300); Phencyclidine Screen,Urine Negative ng/mL (Cutoff=25)
[2022-06-17] MEDS: Piperacillin/Tazobactam 3.375 GM in 0.9 % Sodium Chloride Mini Bag 100 ML IVPB SCH ×3 (08:33→23:44)
[2022-06-17] MEDS: Metoprolol XL (24 HR) Succ 25 MG TAB.ER.24H PO SCH ×2 (08:33→21:07)
[2022-06-17] MEDS: Aspirin Enteric Coated 81 MG Tablet PO SCH (08:33)
[2022-06-17] MEDS ORDERED: *HR* Phenylephrine 10 MG/ML VIAL ONE (08:49)
[2022-06-17] MEDS ORDERED: Sugammadex Sodium 200 MG/2 ML VIAL IV ONE (09:40)
[2022-06-17] MEDS ORDERED: Ketorolac 30 MG/ML VIAL ONE (10:07)
[2022-06-17] MEDS ORDERED: CeFAZolin Syr 2,000MG/20 ML 2,000 MG/20 ML SYRINGE IVPB ONE (10:15)
[2022-06-17] MEDS ORDERED: Albumin Human 5% 12.5 GM/250 ML IV.SOLN IVPB PRN (10:34)
[2022-06-17] MEDS ORDERED: Sennosides 8.6 MG TABLET PO PRN (10:34)
[2022-06-17] MEDS ORDERED: Ondansetron 4 MG/2 ML VIAL IVP PRN (10:34)
[2022-06-17] MEDS ORDERED: *HR* OxyCODONE/APAP 5/325 TABLET PO PRN (10:34)
[2022-06-17] MEDS ORDERED: Ipratropium/Albuterol Neb 3 ML IH PRN (10:34)
[2022-06-17] MEDS ORDERED: *HR* Promethazine 25 MG/ML VIAL IM PRN (10:34)
[2022-06-17] MEDS ORDERED: *HR* Dextrose 50 % in Water (Syg) 50 ML SYRINGE IVP PRN (10:34)
[2022-06-17] MEDS ORDERED: Acetaminophen 325 MG TABLET PO PRN (10:34)
[2022-06-17] MEDS ORDERED: Calcium Gluconate 1gm/50mL 1 GM/50 ML BAG IVPB PRN (10:34)
[2022-06-17] MEDS ORDERED: *HR* FentaNYL (PF) 100 MCG/2 ML VIAL IVP PRN (10:34)
[2022-06-17] MEDS: Morphine Sulfate 2 MG/ML SYRINGE IVP PRN ×4 (11:26→23:49)
[2022-06-17 12:30] LABS: Total Protein,Pleural Fluid 4.7 g/dL
[2022-06-17 12:51] LABS: RBC,Pleural Fluid 17000 RBC/mcL
[2022-06-17 13:46] LABS: Appearance of Pleural Fl Hazy (Clear)
[2022-06-17] MEDS: Vancomycin 1,750 MG/517.5 ML IV.SOLN IVPB SCH ×2 (15:23→22:11)
[2022-06-17] MEDS: Furosemide 20 MG/2 ML VIAL IVP SCH (21:06)
[2022-06-18] MEDS: Morphine Sulfate 2 MG/ML SYRINGE IVP PRN ×2 (05:15→12:39)
[2022-06-18 06:23] LABS: Basophils % 0.2 %; Eosinophils # 0.1 K/mcL (0.0-0.6); Eosinophils % 0.7 %; Hematocrit 23.6 % (37.5-50.1); Hemoglobin 7.5 g/dL (12.9-16.9); Immature Granulocytes % 0.5 % (0-4); Lymphocytes % 5.3 %; Mean Corpuscular HGB Conc 31.8 g/dL (31.6-35.5); Mean Corpuscular Hemoglobin 23.1 pg (28.0-33.3); Mean Corpuscular Volume 72.8 fL (83.0-100.0); Mean Platelet Volume 8.3 fL (9.4-12.4); Monocytes # 1.7 K/mcL (0.0-1.3); Monocytes % 9.4 %; Neutrophils # 15.6 K/mcL (1.6-8.9); Platelet Count 542 K/mcL (140-400); Red Blood Count 3.24 M/mcL (4.19-5.50); Red Cell Distribution Width 15.1 % (11.5-14.5); Segmented Neutrophils % 83.9 %; White Blood Count 18.6 K/mcL (4.3-11.1)
[2022-06-18] MEDS: Vancomycin 1,750 MG/517.5 ML IV.SOLN IVPB SCH (06:26)
[2022-06-18] MEDS: Insulin LISPRO 300 UNITS/3 ML VIAL SUBQ SCH ×4 (06:31→23:00)
[2022-06-18 06:45] LABS: Calcium 8.2 mg/dL (8.6-10.3); Magnesium 1.8 mg/dL (1.6-2.6); Potassium 4.1 mEq/L (3.5-5.1)
[2022-06-18] MEDS: Piperacillin/Tazobactam 3.375 GM in 0.9 % Sodium Chloride Mini Bag 100 ML IVPB SCH ×3 (07:11→22:52)
[2022-06-18] MEDS: Furosemide 20 MG/2 ML VIAL IVP SCH ×2 (07:12→20:15)
[2022-06-18] MEDS: Metoprolol XL (24 HR) Succ 25 MG TAB.ER.24H PO SCH ×2 (07:12→20:14)
[2022-06-18] MEDS: Aspirin Enteric Coated 81 MG Tablet PO SCH (07:12)
[2022-06-18] MEDS ORDERED: Dextrose Gel 15 GM/37.5 ML TUBE PO PRN ×2 (12:43)
[2022-06-18] MEDS ORDERED: Calcium Gluconate 1gm/50mL 1 GM/50 ML BAG IVPB PRN (12:43)
[2022-06-18] MEDS ORDERED: Albumin Human 5% 12.5 GM/250 ML IV.SOLN IVPB PRN (12:43)
[2022-06-18] MEDS ORDERED: Ipratropium/Albuterol Neb 3 ML IH PRN (12:43)
[2022-06-18] MEDS ORDERED: Naloxone 0.4 MG/ML INJ IVP PRN (12:43)
[2022-06-18] MEDS ORDERED: Ondansetron 4 MG/2 ML VIAL IVP PRN (12:43)
[2022-06-18] MEDS ORDERED: *HR* OxyCODONE/APAP 5/325 TABLET PO PRN (12:43)
[2022-06-18] MEDS ORDERED: *HR* Promethazine 25 MG/ML VIAL IM PRN (12:43)
[2022-06-18] MEDS ORDERED: Acetaminophen 325 MG TABLET PO PRN (12:43)
[2022-06-18] MEDS ORDERED: *HR* Dextrose 50 % in Water (Syg) 50 ML SYRINGE IVP PRN (12:43)
[2022-06-18] MEDS ORDERED: Sennosides 8.6 MG TABLET PO PRN (12:43)
[2022-06-18] MEDS ORDERED: Morphine Sulfate 2 MG/ML SYRINGE IVP PRN (12:43)
[2022-06-18] MEDS ORDERED: D5% in Water 1,000 ML IVC PRN (12:43)
[2022-06-18] MEDS ORDERED: 0.9 % Sodium Chloride 250 ML ONE (14:47)
[2022-06-18] MEDS: *HR* OxyCODONE Immed Rel 5 MG TABLET PO PRN (20:14)
[2022-06-18] MEDS: Chlorhexidine Rinse 15 ML MOUTHWASH MM SCH (20:15)
[2022-06-18] MEDS ORDERED: Chlorhexidine Rinse 15 ML MOUTHWASH MM SCH (21:00)
[2022-06-19] MEDS: *HR* OxyCODONE Immed Rel 5 MG TABLET PO PRN ×5 (01:15→20:55)
[2022-06-19] MEDS: Insulin LISPRO 300 UNITS/3 ML VIAL SUBQ SCH ×3 (05:04→19:22)
[2022-06-19 06:35] LABS: Basophils % 0.2 %; Eosinophils # 0.4 K/mcL (0.0-0.6); Eosinophils % 2.1 %; Hemoglobin 7.8 g/dL (12.9-16.9); Immature Granulocytes % 0.5 % (0-4); Lymphocytes # 1.4 K/mcL (0.6-4.6); Lymphocytes % 8.2 %; Mean Corpuscular HGB Conc 32.5 g/dL (31.6-35.5); Mean Corpuscular Hemoglobin 23.9 pg (28.0-33.3); Mean Corpuscular Volume 73.6 fL (83.0-100.0); Mean Platelet Volume 8.3 fL (9.4-12.4); Monocytes # 1.4 K/mcL (0.0-1.3); Monocytes % 8.6 %; Neutrophils # 13.3 K/mcL (1.6-8.9); Platelet Count 505 K/mcL (140-400); Red Blood Count 3.26 M/mcL (4.19-5.50); Red Cell Distribution Width 16.4 % (11.5-14.5); Segmented Neutrophils % 80.4 %; White Blood Count 16.5 K/mcL (4.3-11.1)
[2022-06-19 06:54] LABS: Calcium 8.2 mg/dL (8.6-10.3); Potassium 3.9 mEq/L (3.5-5.1)
[2022-06-19] MEDS: Chlorhexidine Rinse 15 ML MOUTHWASH MM SCH ×2 (08:02→20:32)
[2022-06-19] MEDS: Furosemide 20 MG/2 ML VIAL IVP SCH ×2 (08:02→20:56)
[2022-06-19] MEDS: Metoprolol XL (24 HR) Succ 25 MG TAB.ER.24H PO SCH ×2 (08:03→20:32)
[2022-06-19] MEDS: Aspirin Enteric Coated 81 MG Tablet PO SCH (08:03)
[2022-06-19] MEDS: Piperacillin/Tazobactam 3.375 GM in 0.9 % Sodium Chloride Mini Bag 100 ML IVPB SCH ×2 (08:04→15:38)
[2022-06-19 14:44] LABS: Hematocrit 25.1 % (37.5-50.1); Hemoglobin 8.2 g/dL (12.9-16.9)
[2022-06-19 16:24] LABS: Bilirubin,Urine Negative (Negative); Blood,Urine Negative (Negative); Clarity,Urine Clear (Clear); Color,Urine Light-Yellow (Yellow); Glucose,Urine (UA) Normal (Normal); Ketones,Urine Trace mg/dL (Negative); Leukocyte Esterase,Urine Negative (Negative); Nitrite,Urine Negative (Negative); Protein,Urine Trace mg/dL (Neg-Trace); Specific Gravity,Urine 1.008 (1.010-1.025); Urobilinogen,Urine Normal (Normal)
[2022-06-20] MEDS: Insulin LISPRO 300 UNITS/3 ML VIAL SUBQ SCH ×4 (00:37→20:24)
[2022-06-20] MEDS: Piperacillin/Tazobactam 3.375 GM in 0.9 % Sodium Chloride Mini Bag 100 ML IVPB SCH ×4 (00:37→23:29)
[2022-06-20 03:46] LABS: Basophils % 0.3 %; Eosinophils # 0.4 K/mcL (0.0-0.6); Eosinophils % 2.6 %; Hematocrit 23.8 % (37.5-50.1); Hemoglobin 7.5 g/dL (12.9-16.9); Immature Granulocytes % 0.4 % (0-4); Lymphocytes # 1.3 K/mcL (0.6-4.6); Lymphocytes % 9.7 %; Mean Corpuscular HGB Conc 31.5 g/dL (31.6-35.5); Mean Corpuscular Hemoglobin 23.2 pg (28.0-33.3); Mean Corpuscular Volume 73.7 fL (83.0-100.0); Mean Platelet Volume 8.3 fL (9.4-12.4); Monocytes # 1.2 K/mcL (0.0-1.3); Monocytes % 8.5 %; Neutrophils # 10.7 K/mcL (1.6-8.9); Platelet Count 523 K/mcL (140-400); Red Blood Count 3.23 M/mcL (4.19-5.50); Red Cell Distribution Width 16.3 % (11.5-14.5); Segmented Neutrophils % 78.5 %; White Blood Count 13.6 K/mcL (4.3-11.1)
[2022-06-20 04:06] LABS: Calcium 8.2 mg/dL (8.6-10.3); Potassium 3.8 mEq/L (3.5-5.1)
[2022-06-20] MEDS: *HR* OxyCODONE Immed Rel 5 MG TABLET PO PRN (06:23)
[2022-06-20] MEDS: Metoprolol XL (24 HR) Succ 25 MG TAB.ER.24H PO SCH ×2 (08:20→20:24)
[2022-06-20] MEDS: Aspirin Enteric Coated 81 MG Tablet PO SCH (08:21)
[2022-06-20] MEDS: Furosemide 20 MG/2 ML VIAL IVP SCH (08:21)
[2022-06-20] MEDS: Chlorhexidine Rinse 15 ML MOUTHWASH MM SCH (08:21)
[2022-06-20 09:38] LABS: Hematocrit 25.5 % (37.5-50.1); Hemoglobin 8.3 g/dL (12.9-16.9)
[2022-06-20] MEDS ORDERED: 0.9 % Sodium Chloride 1,000 ML IVC SCH (10:00)
[2022-06-20 14:25] LABS: Iron < 10 mcg/dL (65-175); Transferrin 139 mg/dL (203-362)
[2022-06-20 14:39] LABS: Folate 7.9 ng/mL (3.0-16.0)
[2022-06-21] MEDS: Insulin LISPRO 300 UNITS/3 ML VIAL SUBQ SCH ×4 (01:18→20:49)
[2022-06-21 03:54] LABS: Basophils % 0.2 %; Eosinophils # 0.3 K/mcL (0.0-0.6); Eosinophils % 2.5 %; Hematocrit 22.7 % (37.5-50.1); Hemoglobin 7.2 g/dL (12.9-16.9); Immature Granulocytes % 0.6 % (0-4); Lymphocytes # 1.1 K/mcL (0.6-4.6); Lymphocytes % 9.2 %; Mean Corpuscular HGB Conc 31.7 g/dL (31.6-35.5); Mean Corpuscular Hemoglobin 23.1 pg (28.0-33.3); Mean Corpuscular Volume 72.8 fL (83.0-100.0); Mean Platelet Volume 8.2 fL (9.4-12.4); Monocytes % 7.9 %; Neutrophils # 9.6 K/mcL (1.6-8.9); Platelet Count 484 K/mcL (140-400); Red Blood Count 3.12 M/mcL (4.19-5.50); Red Cell Distribution Width 16.3 % (11.5-14.5); Segmented Neutrophils % 79.6 %; White Blood Count 12.1 K/mcL (4.3-11.1)
[2022-06-21 04:14] LABS: Calcium 8.1 mg/dL (8.6-10.3); Potassium 3.9 mEq/L (3.5-5.1)
[2022-06-21] MEDS: *HR* OxyCODONE Immed Rel 5 MG TABLET PO PRN ×2 (05:48→15:33)
[2022-06-21] MEDS: Piperacillin/Tazobactam 3.375 GM in 0.9 % Sodium Chloride Mini Bag 100 ML IVPB SCH ×2 (08:30→17:23)
[2022-06-21] MEDS: Metoprolol XL (24 HR) Succ 25 MG TAB.ER.24H PO SCH ×2 (08:31→20:56)
[2022-06-21] MEDS: Aspirin Enteric Coated 81 MG Tablet PO SCH (08:31)
[2022-06-21 17:56] LABS: Hematocrit 23.5 % (37.5-50.1); Hemoglobin 7.7 g/dL (12.9-16.9)
[2022-06-22] MEDS: Piperacillin/Tazobactam 3.375 GM in 0.9 % Sodium Chloride Mini Bag 100 ML IVPB SCH ×3 (00:33→17:46)
[2022-06-22] MEDS: Insulin LISPRO 300 UNITS/3 ML VIAL SUBQ SCH ×4 (00:45→17:45)
[2022-06-22] MEDS: *HR* OxyCODONE Immed Rel 5 MG TABLET PO PRN ×2 (02:10→15:13)
[2022-06-22 06:14] LABS: Basophils % 0.2 %; Eosinophils # 0.4 K/mcL (0.0-0.6); Eosinophils % 3.5 %; Hematocrit 23.1 % (37.5-50.1); Hemoglobin 7.3 g/dL (12.9-16.9); Immature Granulocytes % 0.7 % (0-4); Lymphocytes # 1.6 K/mcL (0.6-4.6); Lymphocytes % 13.1 %; Mean Corpuscular HGB Conc 31.6 g/dL (31.6-35.5); Mean Corpuscular Hemoglobin 23.3 pg (28.0-33.3); Mean Corpuscular Volume 73.8 fL (83.0-100.0); Mean Platelet Volume 8.2 fL (9.4-12.4); Monocytes # 1.2 K/mcL (0.0-1.3); Monocytes % 10.1 %; Neutrophils # 8.7 K/mcL (1.6-8.9); Platelet Count 485 K/mcL (140-400); Red Blood Count 3.13 M/mcL (4.19-5.50); Red Cell Distribution Width 16.4 % (11.5-14.5); Segmented Neutrophils % 72.4 %
[2022-06-22 06:34] LABS: Calcium 8.5 mg/dL (8.6-10.3); Potassium 3.8 mEq/L (3.5-5.1)
[2022-06-22] MEDS: Metoprolol XL (24 HR) Succ 25 MG TAB.ER.24H PO SCH ×2 (08:54→20:25)
[2022-06-22] MEDS: Aspirin Enteric Coated 81 MG Tablet PO SCH (08:54)
[2022-06-22 14:32] LABS: ANA IgG by ELISA NONE DETECTED (None Detected)
[2022-06-22] MEDS ORDERED: Insulin LISPRO 300 UNITS/3 ML VIAL SUBQ SCH (21:00)
[2022-06-23] MEDS: Piperacillin/Tazobactam 3.375 GM in 0.9 % Sodium Chloride Mini Bag 100 ML IVPB SCH ×2 (00:30→08:42)
[2022-06-23] MEDS: *HR* OxyCODONE Immed Rel 5 MG TABLET PO PRN (04:22)
[2022-06-23 04:32] LABS: Basophils % 0.2 %; Eosinophils # 0.4 K/mcL (0.0-0.6); Eosinophils % 2.8 %; Hematocrit 22.3 % (37.5-50.1); Hemoglobin 7.2 g/dL (12.9-16.9); Immature Granulocytes % 0.5 % (0-4); Lymphocytes # 1.7 K/mcL (0.6-4.6); Lymphocytes % 13.4 %; Mean Corpuscular HGB Conc 32.3 g/dL (31.6-35.5); Mean Corpuscular Hemoglobin 23.5 pg (28.0-33.3); Mean Corpuscular Volume 72.9 fL (83.0-100.0); Mean Platelet Volume 8.1 fL (9.4-12.4); Monocytes # 1.3 K/mcL (0.0-1.3); Monocytes % 10.1 %; Neutrophils # 9.5 K/mcL (1.6-8.9); Platelet Count 438 K/mcL (140-400); Red Blood Count 3.06 M/mcL (4.19-5.50); Red Cell Distribution Width 16.4 % (11.5-14.5)
[2022-06-23 04:51] LABS: Calcium 8.3 mg/dL (8.6-10.3)
[2022-06-23] MEDS: Insulin LISPRO 300 UNITS/3 ML VIAL SUBQ SCH (08:41)
[2022-06-23] MEDS: Aspirin Enteric Coated 81 MG Tablet PO SCH (08:45)
[2022-06-23] MEDS: Metoprolol XL (24 HR) Succ 25 MG TAB.ER.24H PO SCH (08:47)
[2022-06-23 11:29] VITALS: BP 129/113
[2022-06-23 11:31] VITALS: TEMP 97.9
[2022-06-23 13:02] VITALS: PULSE 84; O2SAT 99
== END 2022-06-23 14:14 | disposition home or self-care (01) | DRG 710 ==
LOC: 2NNU 17:09 → EMEROOARM 17:09 → 2NNU 06-16 02:45 → SUATTDRO 06-16 08:57 → ICNU 06-17 10:16 → 2NNU 06-19 14:02
PROVIDERS: ADMIT Internal Medicine; ATTEND Internal Medicine

== ENCOUNTER 2022-07-11 12:14 | Inpatient (IN) ==
[2022-07-11 12:55] LABS: Basophils % 0.2 %; Eosinophils % 0.2 %; Hematocrit 20.3 % (37.5-50.1); Hemoglobin 6.4 g/dL (12.9-16.9); Immature Granulocytes % 0.6 % (0-4); Lymphocytes # 1.3 K/mcL (0.6-4.6); Lymphocytes % 8.9 %; Mean Corpuscular HGB Conc 31.5 g/dL (31.6-35.5); Mean Corpuscular Hemoglobin 23.1 pg (28.0-33.3); Mean Corpuscular Volume 73.3 fL (83.0-100.0); Mean Platelet Volume 8.4 fL (9.4-12.4); Monocytes # 1.2 K/mcL (0.0-1.3); Monocytes % 8.2 %; Neutrophils # 12.2 K/mcL (1.6-8.9); Platelet Count 439 K/mcL (140-400); Red Blood Count 2.77 M/mcL (4.19-5.50); Red Cell Distribution Width 19.1 % (11.5-14.5); Segmented Neutrophils % 81.9 %; White Blood Count 14.9 K/mcL (4.3-11.1)
[2022-07-11 13:44] LABS: BUN/Creatinine Ratio 17 (6-26); Blood Urea Nitrogen 18 mg/dL (6-20); Calcium 9.2 mg/dL (8.6-10.3); Carbon Dioxide 20 mEq/L (23-29); Chloride 102 mEq/L (98-107); Glucose 139 mg/dL (70-105); Osmolality,Calculated 280 (280-300); Potassium 4.5 mEq/L (3.5-5.1); Sodium 133 mEq/L (136-145); Troponin I < 0.03 ng/mL (< 0.04)
[2022-07-11 14:24] LABS: Basophils % 0.1 %; Eosinophils % 0.2 %; Hematocrit 20.2 % (37.5-50.1); Hemoglobin 6.2 g/dL (12.9-16.9); Immature Granulocytes % 0.6 % (0-4); Lymphocytes # 1.3 K/mcL (0.6-4.6); Lymphocytes % 9.4 %; Mean Corpuscular HGB Conc 30.7 g/dL (31.6-35.5); Mean Corpuscular Hemoglobin 22.5 pg (28.0-33.3); Mean Corpuscular Volume 73.5 fL (83.0-100.0); Mean Platelet Volume 8.4 fL (9.4-12.4); Monocytes # 1.4 K/mcL (0.0-1.3); Monocytes % 9.9 %; Neutrophils # 11.1 K/mcL (1.6-8.9); Platelet Count 448 K/mcL (140-400); Red Blood Count 2.75 M/mcL (4.19-5.50); Red Cell Distribution Width 18.8 % (11.5-14.5); Segmented Neutrophils % 79.8 %
[2022-07-11 14:39] LABS: % Iron Saturation 5 % (20-55); Alanine Aminotransferase 14 Units/L (7-52); Albumin 3.8 g/dL (3.5-5.7); Alkaline Phosphatase 99 Units/L (34-104); Aspartate Amino Transferase 17 Units/L (13-39); Bilirubin,Direct 0.2 mg/dL (0.0-0.2); Bilirubin,Indirect 0.7 mg/dL (0.0-1.0); Bilirubin,Total 0.9 mg/dL (0.3-1.0); Iron 15 mcg/dL (65-175); Total Protein 7.8 g/dL (6.4-8.9); Transferrin 230 mg/dL (203-362)
[2022-07-11 14:41] LABS: INR 1.5; Prothrombin Time 16.9 Seconds (9.4-12.1)
[2022-07-11] MEDS ORDERED: Iopamidol - 370 500 ML MLS IVP ONE (15:10)
[2022-07-11] MEDS ORDERED: 0.9 % Sodium Chloride 250 ML IVC ONE (15:11)
[2022-07-11 15:58] LABS: VBG HCO3 21 mEq/L (21-27); VBG PCO2 35 mmHg (41-51); VBG PO2 60 mmHg (25-50)
[2022-07-11] MEDS ORDERED: Naloxone 0.4 MG/ML INJ IVP PRN (19:42)
[2022-07-11] MEDS ORDERED: Melatonin 3 MG TABLET PO PRN (20:37)
[2022-07-11] MEDS ORDERED: Ondansetron ODT 4 MG TAB.RAPDIS SL PRN (20:37)
[2022-07-11] MEDS ORDERED: *HR* Metoprolol 5 MG/5 ML VIAL IVP ONE (21:00)
[2022-07-11] MEDS ORDERED: *HR* Dextrose 50 % in Water (Syg) 50 ML SYRINGE IVP PRN (21:56)
[2022-07-11] MEDS ORDERED: Dextrose Gel 15 GM/37.5 ML TUBE PO PRN ×2 (21:56)
[2022-07-11] MEDS ORDERED: D5% in Water 1,000 ML IVC PRN (21:56)
[2022-07-11] MEDS ORDERED: Vancomycin 2,000 MG/520 ML IV.SOLN IVPB ONE (23:00)
[2022-07-12] MEDS ORDERED: Piperacillin/Tazobactam 3.375 GM in 0.9 % Sodium Chloride Mini Bag 100 ML IVPB SCH
[2022-07-12 01:14] LABS: Basophils % 0.1 %; Eosinophils # 0.1 K/mcL (0.0-0.6); Eosinophils % 0.4 %; Hemoglobin 6.5 g/dL (12.9-16.9); Immature Granulocytes % 0.5 % (0-4); Lymphocytes # 1.2 K/mcL (0.6-4.6); Lymphocytes % 9.9 %; Mean Corpuscular HGB Conc 32.5 g/dL (31.6-35.5); Mean Corpuscular Hemoglobin 24.1 pg (28.0-33.3); Mean Corpuscular Volume 74.1 fL (83.0-100.0); Mean Platelet Volume 8.3 fL (9.4-12.4); Monocytes # 1.2 K/mcL (0.0-1.3); Monocytes % 9.4 %; Neutrophils # 9.9 K/mcL (1.6-8.9); Platelet Count 335 K/mcL (140-400); Red Cell Distribution Width 19.6 % (11.5-14.5); Segmented Neutrophils % 79.7 %; White Blood Count 12.4 K/mcL (4.3-11.1)
[2022-07-12] MEDS ORDERED: 0.9 % Sodium Chloride 250 ML ONE ×2 (01:16→02:00)
[2022-07-12 01:26] LABS: INR 1.6; Prothrombin Time 17.5 Seconds (9.4-12.1)
[2022-07-12 01:28] LABS: Activated Partial Thrombo Time 33.3 Seconds (26.0-36.0)
[2022-07-12 01:35] LABS: Alanine Aminotransferase 16 Units/L (7-52); Albumin 3.3 g/dL (3.5-5.7); Albumin/Globulin Ratio 0.9 (1.1-2.2); Alkaline Phosphatase 100 Units/L (34-104); Aspartate Amino Transferase 16 Units/L (13-39); BUN/Creatinine Ratio 17 (6-26); Bilirubin,Total 0.8 mg/dL (0.3-1.0); Blood Urea Nitrogen 16 mg/dL (6-20); Calcium 8.3 mg/dL (8.6-10.3); Carbon Dioxide 22 mEq/L (23-29); Chloride 104 mEq/L (98-107); Globulin 3.7 g/dL (2.4-3.5); Glucose 246 mg/dL (70-105); Osmolality,Calculated 285 (280-300); Phosphorous 3.2 mg/dL (2.7-4.5); Potassium 4.2 mEq/L (3.5-5.1); Sodium 133 mEq/L (136-145)
[2022-07-12] MEDS ORDERED: 0.9 % Sodium Chloride 250 ML IVC SCH (02:45)
[2022-07-12] MEDS: Piperacillin/Tazobactam 3.375 GM in 0.9 % Sodium Chloride Mini Bag 100 ML IVPB SCH ×3 (03:37→21:48)
[2022-07-12 06:58] LABS: Hematocrit 21.5 % (37.5-50.1)
[2022-07-12] MEDS: Acetaminophen 325 MG TABLET PO PRN ×2 (08:44→21:58)
[2022-07-12] MEDS: Metoprolol XL (24 HR) Succ 25 MG TAB.ER.24H PO SCH ×2 (08:44→21:46)
[2022-07-12] MEDS: Insulin LISPRO 300 UNITS/3 ML VIAL SUBQ SCH ×4 (08:58→21:41)
[2022-07-12] MEDS: Aspirin Enteric Coated 81 MG Tablet PO SCH (10:41)
[2022-07-12] MEDS: Vancomycin 1,250 MG/262.5 ML IV.SOLN IVPB SCH ×2 (11:10→21:48)
[2022-07-12 16:40] LABS: Hematocrit 25.2 % (37.5-50.1)
[2022-07-13 02:47] LABS: Immature Reticulocyte % 15.6 % (11.0-38.0); Retculocyte # 0.06 M/mcL (0.05-0.10); Reticulocyte % 1.9 % (1.6-2.8)
[2022-07-13 03:07] LABS: Lactate Dehydrogenase 142 Units/L (140-271)
[2022-07-13] MEDS: Piperacillin/Tazobactam 3.375 GM in 0.9 % Sodium Chloride Mini Bag 100 ML IVPB SCH ×3 (05:15→20:31)
[2022-07-13] MEDS: Metoprolol XL (24 HR) Succ 25 MG TAB.ER.24H PO SCH ×2 (08:30→20:30)
[2022-07-13] MEDS: Aspirin Enteric Coated 81 MG Tablet PO SCH ×2 (08:30→09:46)
[2022-07-13] MEDS: Insulin LISPRO 300 UNITS/3 ML VIAL SUBQ SCH ×4 (08:31→22:38)
[2022-07-13] MEDS: Colchicine 0.6 MG TABLET PO SCH ×2 (09:48→20:31)
[2022-07-13] MEDS: Acetaminophen 325 MG TABLET PO PRN ×2 (09:48→14:45)
[2022-07-13 10:07] LABS: Basophils % 0.2 %; Eosinophils # 0.3 K/mcL (0.0-0.6); Eosinophils % 2.7 %; Hematocrit 22.1 % (37.5-50.1); Hemoglobin 7.3 g/dL (12.9-16.9); Immature Granulocytes % 0.3 % (0-4); Lymphocytes # 1.4 K/mcL (0.6-4.6); Lymphocytes % 11.8 %; Mean Corpuscular Hemoglobin 24.7 pg (28.0-33.3); Mean Corpuscular Volume 74.9 fL (83.0-100.0); Mean Platelet Volume 8.5 fL (9.4-12.4); Monocytes # 0.9 K/mcL (0.0-1.3); Platelet Count 355 K/mcL (140-400); Red Blood Count 2.95 M/mcL (4.19-5.50); Red Cell Distribution Width 20.2 % (11.5-14.5); White Blood Count 11.7 K/mcL (4.3-11.1)
[2022-07-13 10:12] LABS: BUN/Creatinine Ratio 14 (6-26); Blood Urea Nitrogen 15 mg/dL (6-20); Calcium 8.1 mg/dL (8.6-10.3); Carbon Dioxide 21 mEq/L (23-29); Chloride 105 mEq/L (98-107); Glucose 210 mg/dL (70-105); Osmolality,Calculated 285 (280-300); Sodium 134 mEq/L (136-145)
[2022-07-13] MEDS: Vancomycin 1,250 MG/262.5 ML IV.SOLN IVPB SCH (11:18)
[2022-07-13 12:39] LABS: Hematocrit 22.5 % (37.5-50.1); Hemoglobin 7.2 g/dL (12.9-16.9)
[2022-07-13 16:06] LABS: Hematocrit 21.5 % (37.5-50.1); Hemoglobin 6.7 g/dL (12.9-16.9)
[2022-07-13] MEDS ORDERED: SODIUM CHLORIDE/NAHCO3/KCL/PEG 4,000 ML SOLN.RECON PO ONE (17:00)
[2022-07-13] MEDS: Pantoprazole 40 MG in 0.9 % Sodium Chloride Mini Bag 100 ML IVC SCH ×2 (18:04→22:45)
[2022-07-13 22:24] LABS: Hematocrit 25.6 % (37.5-50.1)
[2022-07-13 22:27] LABS: Hemoglobin 8.3 g/dL (12.9-16.9)
[2022-07-14] MEDS: Acetaminophen 325 MG TABLET PO PRN ×3 (02:41→21:24)
[2022-07-14] MEDS: Pantoprazole 40 MG in 0.9 % Sodium Chloride Mini Bag 100 ML IVC SCH ×3 (03:42→17:52)
[2022-07-14] MEDS: Piperacillin/Tazobactam 3.375 GM in 0.9 % Sodium Chloride Mini Bag 100 ML IVPB SCH ×3 (03:42→15:16)
[2022-07-14] MEDS: Insulin LISPRO 300 UNITS/3 ML VIAL SUBQ SCH ×4 (08:10→20:56)
[2022-07-14] MEDS: Metoprolol XL (24 HR) Succ 25 MG TAB.ER.24H PO SCH ×2 (08:11→20:53)
[2022-07-14] MEDS: Colchicine 0.6 MG TABLET PO SCH ×2 (08:11→20:53)
[2022-07-14 08:32] LABS: BUN/Creatinine Ratio 8 (6-26); Blood Urea Nitrogen 7 mg/dL (6-20); Calcium 8.7 mg/dL (8.6-10.3); Carbon Dioxide 18 mEq/L (23-29); Chloride 107 mEq/L (98-107); Glucose 100 mg/dL (70-105); Osmolality,Calculated 278 (280-300); Potassium 4.6 mEq/L (3.5-5.1); Sodium 135 mEq/L (136-145)
[2022-07-14 10:54] LABS: Basophils % 0.2 %; Eosinophils # 0.2 K/mcL (0.0-0.6); Eosinophils % 2.1 %; Hematocrit 24.3 % (37.5-50.1); Hemoglobin 7.7 g/dL (12.9-16.9); Immature Granulocytes % 0.2 % (0-4); Lymphocytes # 1.1 K/mcL (0.6-4.6); Lymphocytes % 12.2 %; Mean Corpuscular HGB Conc 31.7 g/dL (31.6-35.5); Mean Corpuscular Volume 75.7 fL (83.0-100.0); Mean Platelet Volume 8.2 fL (9.4-12.4); Monocytes # 0.8 K/mcL (0.0-1.3); Monocytes % 8.9 %; Neutrophils # 7.1 K/mcL (1.6-8.9); Platelet Count 378 K/mcL (140-400); Red Blood Count 3.21 M/mcL (4.19-5.50); Red Cell Distribution Width 19.8 % (11.5-14.5); Segmented Neutrophils % 76.4 %; White Blood Count 9.3 K/mcL (4.3-11.1)
[2022-07-14] MEDS ORDERED: Lidocaine -MPF 2% 5 ML VIAL ONE (11:04)
[2022-07-14] MEDS ORDERED: Simethicone 40 MG/0.6 ML MLS ONE (12:04)
[2022-07-14] MEDS ORDERED: Pantoprazole 40 MG VIAL ONE (14:29)
[2022-07-14 17:19] LABS: Hematocrit 25.8 % (37.5-50.1); Hemoglobin 8.6 g/dL (12.9-16.9)
[2022-07-14 22:25] LABS: Hematocrit 24.1 % (37.5-50.1); Hemoglobin 7.9 g/dL (12.9-16.9)
[2022-07-15 05:07] LABS: Basophils % 0.3 %; Eosinophils # 0.3 K/mcL (0.0-0.6); Eosinophils % 3.7 %; Hemoglobin 8.1 g/dL (12.9-16.9); Immature Granulocytes % 0.3 % (0-4); Lymphocytes # 1.5 K/mcL (0.6-4.6); Lymphocytes % 17.7 %; Mean Corpuscular HGB Conc 32.4 g/dL (31.6-35.5); Mean Corpuscular Hemoglobin 24.5 pg (28.0-33.3); Mean Corpuscular Volume 75.5 fL (83.0-100.0); Mean Platelet Volume 8.1 fL (9.4-12.4); Monocytes # 0.8 K/mcL (0.0-1.3); Platelet Count 376 K/mcL (140-400); Red Blood Count 3.31 M/mcL (4.19-5.50); Red Cell Distribution Width 19.9 % (11.5-14.5); White Blood Count 8.7 K/mcL (4.3-11.1)
[2022-07-15 05:12] LABS: BUN/Creatinine Ratio 11 (6-26); Blood Urea Nitrogen 11 mg/dL (6-20); Calcium 8.8 mg/dL (8.6-10.3); Carbon Dioxide 23 mEq/L (23-29); Chloride 108 mEq/L (98-107); Glucose 195 mg/dL (70-105); Osmolality,Calculated 289 (280-300); Sodium 137 mEq/L (136-145)
[2022-07-15] MEDS: Piperacillin/Tazobactam 3.375 GM in 0.9 % Sodium Chloride Mini Bag 100 ML IVPB SCH (05:21)
[2022-07-15] MEDS: Metoprolol XL (24 HR) Succ 25 MG TAB.ER.24H PO SCH ×2 (08:26→21:11)
[2022-07-15] MEDS: Colchicine 0.6 MG TABLET PO SCH ×2 (08:27→21:11)
[2022-07-15] MEDS: Insulin LISPRO 300 UNITS/3 ML VIAL SUBQ SCH ×4 (08:27→21:11)
[2022-07-15 16:13] LABS: Hematocrit 25.9 % (37.5-50.1); Hemoglobin 8.2 g/dL (12.9-16.9)
[2022-07-15 20:53] LABS: Hematocrit 27.2 % (37.5-50.1); Hemoglobin 8.7 g/dL (12.9-16.9)
[2022-07-16 02:44] LABS: Basophils % 0.2 %; Eosinophils # 0.3 K/mcL (0.0-0.6); Eosinophils % 3.8 %; Hematocrit 26.7 % (37.5-50.1); Hemoglobin 8.6 g/dL (12.9-16.9); Immature Granulocytes % 0.3 % (0-4); Lymphocytes # 1.9 K/mcL (0.6-4.6); Lymphocytes % 21.5 %; Mean Corpuscular HGB Conc 32.2 g/dL (31.6-35.5); Mean Corpuscular Hemoglobin 24.2 pg (28.0-33.3); Mean Corpuscular Volume 75.2 fL (83.0-100.0); Mean Platelet Volume 8.1 fL (9.4-12.4); Monocytes # 0.7 K/mcL (0.0-1.3); Monocytes % 7.6 %; Platelet Count 404 K/mcL (140-400); Red Blood Count 3.55 M/mcL (4.19-5.50); Red Cell Distribution Width 19.8 % (11.5-14.5); Segmented Neutrophils % 66.6 %
[2022-07-16 03:12] LABS: BUN/Creatinine Ratio 12 (6-26); Blood Urea Nitrogen 10 mg/dL (6-20); Calcium 8.9 mg/dL (8.6-10.3); Carbon Dioxide 22 mEq/L (23-29); Chloride 107 mEq/L (98-107); Glucose 141 mg/dL (70-105); Osmolality,Calculated 287 (280-300); Potassium 3.7 mEq/L (3.5-5.1); Sodium 138 mEq/L (136-145)
[2022-07-16 03:23] LABS: Ferritin 407 ng/mL (20-250)
[2022-07-16] MEDS ORDERED: Iron Sucrose Complex 200 MG in 0.9 % Sodium Chloride 100 ML IVPB ONE (05:35)
[2022-07-16] MEDS: Acetaminophen 325 MG TABLET PO PRN (06:04)
[2022-07-16] MEDS: Colchicine 0.6 MG TABLET PO SCH (10:27)
[2022-07-16] MEDS: Metoprolol XL (24 HR) Succ 25 MG TAB.ER.24H PO SCH (10:27)
[2022-07-16] MEDS: Insulin LISPRO 300 UNITS/3 ML VIAL SUBQ SCH (10:27)
[2022-07-16 11:08] VITALS: BP 158/96; PULSE 90; TEMP 96.7; O2SAT 97
== END 2022-07-16 17:00 | disposition home or self-care (01) | DRG 720 ==
LOC: EMEROOARM 12:14 → 2NENU 12:14 → SUATTDRO 18:46 → 2NENU 21:38
PROVIDERS: ADMIT Pharmacist; ATTEND Pharmacist